=== PATIENT | male | born 1995 | race African-American/Black ===

== ENCOUNTER 2017-08-29 16:43 | Emergency (ER) | payer MEDICAID ==
[~2017-08-29] VITALS: Ht 180.3 cm; Wt 68.0 kg
[~2017-08-29 16:43] MED LIST: MARIJUANA INH
--- NOTE | 2017-08-29 16:53 | NUR ---
22 YO MALE BB RA FROM HOME. PATIENT IS ALERT AND ORIENTED X 3, STATES HE IS HEARING VOICES. DENIES SI/ HI AT THIS TIME, SKIN WARM AND DRY, RESP EVEN AND UNLABORED. AWAITING ORDERS FROM PROVIDER
--- NOTE | 2017-08-29 16:54 | NUR ---
MD RANDOLPHM AT BED SIDE FOR EVAL
[2017-08-29 17:01] LABS: BASOPHILS # (AUTO) 0.1 /CMM (0.0-0.2); BASOPHILS % (AUTO) 2.2 % (0.0-2.0); EOSINOPHILS # (AUTO) 0.2 /CMM (0.0-0.7); EOSINOPHILS % (AUTO) 4.8 % (0.0-6.0); HEMATOCRIT 47 % (39-51); HEMOGLOBIN 15.8 g/dL (13.5-17.5); LYMPHOCYTES # (AUTO) 2.1 /CMM (0.8-4.8); LYMPHOCYTES % (AUTO) 48.5 % (20.0-44.0); MEAN CORPUSCULAR HEMOGLOBIN 31 PG (26.0-33.0); MEAN CORPUSCULAR HGB CONC 34 g/dl (31.0-36.0); MEAN CORPUSCULAR VOLUME 91 fL (80-96); MONOCYTES # (AUTO) 0.5 /CMM (0.1-1.30); MONOCYTES % (AUTO) 10.3 % (2.0-12.0); NEUTROPHILS # (AUTO) 1.6 /CMM (1.8-8.9); NEUTROPHILS % (AUTO) 34.2 % (43.0-81.0); PLATELET COUNT (AUTO) 256 /CMM (150-450); RDW COEFFICIENT OF VARIATION 13.8 (11.5-15.0); RED BLOOD CELL COUNT(AUTO) 5.14 MIL/uL (4.5-6.0); WHITE BLOOD COUNT (AUTO) 4.5 K/uL (4.3-11.0)
[2017-08-29 17:17] LABS: ALANINE AMINOTRANSFERASE 27 U/L (12-78); ALBUMIN 4.1 g/dL (3.4-5.0); ALCOHOL, BLOOD < 3 mg/dL (0-0); ALKALINE PHOSPHATASE 44 U/L (46-116); ASPARTATE AMINOTRANSFERASE 32 U/L (15-37); BILIRUBIN,DIRECT 0.3 mg/dL (0.0-0.2); BILIRUBIN,TOTAL 1.1 mg/dL (0.2-1.0); CALCIUM, SERUM 9.6 mg/dL (8.5-10.1); CARBON DIOXIDE 29 mmol/L (21-32); CHLORIDE 101 mmol/L (98-107); CREATININE 1.1 mg/dL (0.6-1.3); GLUCOSE 103 mg/dL (74-106); POTASSIUM 3.9 mmol/L (3.5-5.1); SODIUM SERUM 139 mmol/L (136-145); TOTAL PROTEIN, SERUM 8.4 g/dL (6.4-8.2); UREA NITROGEN, BLOOD 20 mg/dL (7-18)
--- NOTE | 2017-08-29 17:21 | NUR ---
CALLED PINKY FOR PSYCH EVAL, ETA 1 HOUR
[2017-08-29 17:22] LABS: APPEARANCE,URINE CLEAR (CLEAR); BILIRUBIN,URINE NEGATIVE (NEGATIVE); BLOOD, URINE NEGATIVE Ery/uL (NEGATIVE); COLOR,URINE YELLOW (YELLOW); KETONES,URINE NEGATIVE (NEGATIVE); LEUKOCYTE ESTERASE ,URINE NEGATIVE (NEGATIVE); NITRITE, URINE NEGATIVE (NEGATIVE); PROTEIN,URINE 2+ mg/dl (NEGATIVE); UGLUCOSE NEGATIVE (NEGATIVE); UROBILINOGEN,URINE 0.2 EU/dL (0.2)
[2017-08-29 17:35] LABS: BACTERIA,URINE Few /HPF (None Seen); RBC,URINE 0-2 /HPF (0-2); WBC,URINE 0-2 /HPF (0-3)
[2017-08-29 17:36] LABS: SQUAMOUS EPITHELIAL CELL,UR Few /HPF (None Seen)
[2017-08-29 18:18] LABS: ACETAMINOPHEN 0 ug/ml (10-30)
--- NOTE | 2017-08-29 19:10 | NUR ---
Narayan tan in [facility] - 08/29/17 at 1916 by BRIAN RECEIVED REPORT FROM HAI GOODRICH FOR HOWIE.
--- NOTE | 2017-08-29 19:22 | NUR ---
RECEIVED REPORT FROM HAI WAGONER FOR HOWIE.
--- NOTE | 2017-08-29 19:56 | NUR ---
REQUESTED [facility] FOR TRANSPORT TO [facility], ETA 83 MIN.
--- NOTE | 2017-08-29 20:04 | NUR ---
Patient is resting comfortably in bed with eyes closed. Easily aroused. VSS
--- NOTE | 2017-08-29 20:52 | NUR ---
[facility] BEDSIDE FOR PT TRANSPORT TO [facility]
--- NOTE | 2017-08-29 20:52 | NUR ---
Patient Tranfers to outside Facility Physician: LALO. Location: [facility] PT TRANSFERRED WITH VSS AND NO S/S OF PT DISCOMFORT NOTED. PT [facility].
[2017-08-29 20:54] VITALS: BP 122/69
== END 2017-08-29 20:56 ==
LOC: ER 16:45
DX: R45.851 Suicidal ideations (principal); R79.89 Other specified abnormal findings of blood chemistry; F15.10 Other stimulant abuse, uncomplicated; F12.10 Cannabis abuse, uncomplicated; F19.10 Other psychoactive substance abuse, uncomplicated; F10.10 Alcohol abuse, uncomplicated; F17.200 Nicotine dependence, unspecified, uncomplicated; G89.29 Other chronic pain; F20.9 Schizophrenia, unspecified
CPT/HCPCS: 36415; 80048; 80076; 80305; 80329; 81001; 85025; 99285; A4606; G0480 ×2; Z7610; 81000-TC

== ENCOUNTER 2018-12-19 20:04 | Emergency (ER) | payer MEDICAID, OTHER ==
[~2018-12-19] VITALS: Ht 180.3 cm; Wt 70.3 kg
--- NOTE | 2018-12-19 20:26 | NUR ---
AISSATOU PUCKETT IS A THE BEDSIDE A SITTER.
--- NOTE | 2018-12-19 20:26 | NUR ---
PT PRESENTED TO THE ER WITH A C/O SI. PT STATED THAT HE DOES NOT HAVE A PLAN AT THIS TIME. PT AMBULATED TO ER 15 AFTER HE GAVE A URINE SAMPLE. URINE SAMPLE SENT TO THE LAB.
--- NOTE | 2018-12-19 20:27 | NUR ---
PT CHANGED INTO A GOWN. ALL PT'S BELONGINGS WERE PLACED INTO A BELONGING BAG AND PT'S STICKER WAS APPLIED TO THE BAG. BAG IS IN THE NURSE'S STATION UNDER THE SINK.
--- NOTE | 2018-12-19 20:27 | NUR ---
PT REC'D 2 WARM BLANKETS.
--- NOTE | 2018-12-19 20:29 | NUR ---
SECURITY IS AT THE BEDSIDE WANDING THE PT.
[2018-12-19 20:44] LABS: APPEARANCE,URINE Clear (CLEAR); BILIRUBIN,URINE Negative (NEGATIVE); BLOOD, URINE Negative Ery/uL (NEGATIVE); COLOR,URINE Yellow (YELLOW); KETONES,URINE Negative (NEGATIVE); LEUKOCYTE ESTERASE ,URINE Negative (NEGATIVE); NITRITE, URINE Negative (NEGATIVE); PROTEIN,URINE Negative (NEGATIVE); UGLUCOSE Negative (NEGATIVE); UROBILINOGEN,URINE 0.2 EU/dL (0.2)
[2018-12-19 20:45] LABS: BASOPHILS # (AUTO) 0.1 /CMM (0.0-0.2); BASOPHILS % (AUTO) 0.9 % (0.0-2.0); EOSINOPHILS % (AUTO) 3.3 % (0.0-6.0); HEMATOCRIT 42 % (39-51); HEMOGLOBIN 13.9 g/dL (13.5-17.5); LYMPHOCYTES # (AUTO) 2.3 /CMM (0.8-4.8); LYMPHOCYTES % (AUTO) 32.9 % (20.0-44.0); MEAN CORPUSCULAR HGB CONC 34 g/dl (31.0-36.0); MEAN CORPUSCULAR VOLUME 94 fL (80-96); MONOCYTES # (AUTO) 0.5 /CMM (0.1-1.30); MONOCYTES % (AUTO) 6.6 % (2.0-12.0); NEUTROPHILS # (AUTO) 3.9 /CMM (1.8-8.9); NEUTROPHILS % (AUTO) 56.3 % (43.0-81.0); PLATELET COUNT (AUTO) 230 /CMM (150-450); WHITE BLOOD COUNT (AUTO) 6.9 K/uL (4.3-11.0)
[2018-12-19 21:04] LABS: ALANINE AMINOTRANSFERASE 29 U/L (12-78); ALBUMIN 3.6 g/dL (3.4-5.0); ALCOHOL, BLOOD < 3 mg/dL (0-0); ALKALINE PHOSPHATASE 56 U/L (46-116); ASPARTATE AMINOTRANSFERASE 28 U/L (15-37); BILIRUBIN,TOTAL 0.2 mg/dL (0.2-1.0); CALCIUM, SERUM 8.8 mg/dL (8.5-10.1); CARBON DIOXIDE 29 mmol/L (21-32); CHLORIDE 104 mmol/L (98-107); CREATININE 1.1 mg/dL (0.6-1.3); GLUCOSE 97 mg/dL (74-106); POTASSIUM 3.6 mmol/L (3.5-5.1); SALICYLATE 3.5 mg/dL (2.8-20.0); SODIUM SERUM 139 mmol/L (136-145); TOTAL PROTEIN, SERUM 7.1 g/dL (6.4-8.2); UREA NITROGEN, BLOOD 12 mg/dL (7-18)
[2018-12-19 21:05] LABS: ACETAMINOPHEN < 2 ug/ml (10-30)
--- NOTE | 2018-12-19 22:00 | NUR ---
PT ATE A SANDWICH AND JUICE.
--- NOTE | 2018-12-19 22:24 | NUR ---
CALLED JEREMÍAS EASLEY FOR TRANSFER TO [facility]
--- NOTE | 2018-12-19 22:50 | NUR ---
CALL FROM [facility], REQUESTING CALL BACK AT [phone] AFTER CRISIS TEAM EVALUATION.
--- NOTE | 2018-12-19 23:05 | NUR ---
RISHI ETA 1 HR
--- NOTE | 2018-12-19 23:54 | NUR ---
YSABEL BLACKWELL, ARRIVED AND IS REVIEWING THE PT'S CHART.
--- NOTE | 2018-12-20 00:09 | NUR ---
PT IS SLEEPING SOUNDLY WITH NO S/S OF PAIN OR DISTRESS.
--- NOTE | 2018-12-20 00:10 | NUR ---
GAY, EMT IS AT THE BEDSIDE A SITTER.
--- NOTE | 2018-12-20 00:19 | NUR ---
PT WAS SEEN BY YSABEL BLACKWELL.
--- NOTE | 2018-12-20 00:40 | NUR ---
AISSATOU PUCKETT, IS AT THE BEDSIDE.
--- NOTE | 2018-12-20 00:50 | NUR ---
PER YSABEL BLACKWELL, PT IS ON A 5150 AND SHE SPOKE TO TL AT [facility] RE: PT'S EVALUATION.
--- NOTE | 2018-12-20 00:51 | NUR ---
YSABEL BLACKWELL, FAXED [facility] WITH THE PT'S CLINICALS AND HOLD.
--- NOTE | 2018-12-20 01:01 | NUR ---
PT REC'D WATER AND IS TOLERATING PO WELL.
--- NOTE | 2018-12-20 01:20 | NUR ---
YSABEL BLACKWELL, CALLED [facility]. [facility] REC'D THE FAX AND WILL CALL BACK WHEN THEY HAVE BED INFORMATION.
--- NOTE | 2018-12-20 01:30 | NUR ---
[facility] CALLED AND SPOKE TO HAI LEI. UPDATED VS GIVEN AND STATUS OF PT GIVEN.
--- NOTE | 2018-12-20 02:29 | NUR ---
PT ACCEPTED TO [facility] UNIT [address] DA SILVA. # FOR REPORT [phone]. ETA 60-90 MIN
--- NOTE | 2018-12-20 02:55 | NUR ---
REPORT GIVEN TO HAI CALLAHAN AT [facility].
[2018-12-20 02:57] VITALS: BP 114/72
--- NOTE | 2018-12-20 02:57 | NUR ---
PT TRANSFERED OUT VIA AMBULANCE. VSS.
== END 2018-12-20 02:59 ==
LOC: ER 20:04
DX: R45.851 Suicidal ideations (principal); R44.0 Auditory hallucinations; G89.29 Other chronic pain; F17.200 Nicotine dependence, unspecified, uncomplicated; Z59.0 Homelessness
CPT/HCPCS: 36415; 80048-TC; 80076-TC; 80305; 81000-TC; 85025-TC; G0480

== ENCOUNTER 2019-01-05 21:03 | Emergency (ER) | payer OTHER, MEDICAID ==
[~2019-01-05] VITALS: Ht 180.3 cm; Wt 70.3 kg
--- NOTE | 2019-01-05 21:20 | NUR ---
PT TO ER C/O AUDITORY HALLUCINATIONS TELLING HIM TO KILL HIMSELF. NO IMMEDIATE SIGNS OF DISTRESS NOTED. PT CALM AND COOPERATIVE. PT STATES HE HAS NOT BEEN TAKING HIS MEDS. PT TO ER BED, CHANGED INTO GOWN AND SI PRECUATIONS IMPLEMENTED. WILL CONT TO MONITOR PT.
[2019-01-05] MEDS ORDERED: OLANZAPINE 5 MG TABLET PO ONE (21:30)
[2019-01-05 21:40] LABS: BASOPHILS % (AUTO) 0.8 % (0.0-2.0); EOSINOPHILS % (AUTO) 2.7 % (0.0-6.0); HEMATOCRIT 40 % (39-51); HEMOGLOBIN 13.3 g/dL (13.5-17.5); LYMPHOCYTES # (AUTO) 2.5 /CMM (0.8-4.8); LYMPHOCYTES % (AUTO) 41.9 % (20.0-44.0); MEAN CORPUSCULAR HGB CONC 33 g/dl (31.0-36.0); MEAN CORPUSCULAR VOLUME 94 fL (80-96); MONOCYTES # (AUTO) 0.6 /CMM (0.1-1.30); MONOCYTES % (AUTO) 9.3 % (2.0-12.0); NEUTROPHILS # (AUTO) 2.7 /CMM (1.8-8.9); NEUTROPHILS % (AUTO) 45.3 % (43.0-81.0); PLATELET COUNT (AUTO) 235 /CMM (150-450); RED BLOOD CELL COUNT(AUTO) 4.32 MIL/uL (4.5-6.0)
[2019-01-05 21:44] LABS: APPEARANCE,URINE CLEAR (CLEAR); BILIRUBIN,URINE 1+ (NEGATIVE); BLOOD, URINE NEGATIVE Ery/uL (NEGATIVE); COLOR,URINE YELLOW (YELLOW); KETONES,URINE TRACE (NEGATIVE); LEUKOCYTE ESTERASE ,URINE NEGATIVE (NEGATIVE); NITRITE, URINE NEGATIVE (NEGATIVE); PROTEIN,URINE NEGATIVE (NEGATIVE); UGLUCOSE NEGATIVE (NEGATIVE)
[2019-01-05 21:50] LABS: RBC,URINE 0-2 /HPF (0-2); WBC,URINE 0-2 /HPF (0-3)
[2019-01-05 21:51] LABS: BACTERIA,URINE None seen /HPF (None Seen); SQUAMOUS EPITHELIAL CELL,UR 0-2 /HPF (None Seen)
[2019-01-05 22:02] LABS: ALANINE AMINOTRANSFERASE 35 U/L (12-78); ALBUMIN 3.8 g/dL (3.4-5.0); ALCOHOL, BLOOD < 3 mg/dL (0-0); ALKALINE PHOSPHATASE 66 U/L (46-116); ASPARTATE AMINOTRANSFERASE 31 U/L (15-37); BILIRUBIN,DIRECT 0.1 mg/dL (0.0-0.2); BILIRUBIN,TOTAL 0.2 mg/dL (0.2-1.0); CALCIUM, SERUM 9.1 mg/dL (8.5-10.1); CARBON DIOXIDE 26 mmol/L (21-32); CHLORIDE 105 mmol/L (98-107); CREATININE 1.1 mg/dL (0.6-1.3); GLUCOSE 92 mg/dL (74-106); POTASSIUM 3.9 mmol/L (3.5-5.1); SALICYLATE 3.8 mg/dL (2.8-20.0); SODIUM SERUM 141 mmol/L (136-145); TOTAL PROTEIN, SERUM 7.4 g/dL (6.4-8.2); UREA NITROGEN, BLOOD 12 mg/dL (7-18)
[2019-01-05 22:04] LABS: ACETAMINOPHEN < 2 ug/ml (10-30)
[2019-01-05] MEDS ORDERED: OLANZAPINE 5 MG TABLET ONE (22:04)
--- NOTE | 2019-01-05 23:14 | NUR ---
CALLED FAST FOOD TEAM MEMBER NATALIO BLACKWELL VOICEMAIL
--- NOTE | 2019-01-05 23:41 | NUR ---
CALLED JEREMÍAS EASLEY MD WILL CALL BACK FOR CRISIS EVAL PLAN
--- NOTE | 2019-01-06 00:19 | NUR ---
RISHI ETA 30 MINUTES
[2019-01-06 05:48] VITALS: BP 121/65
--- NOTE | 2019-01-06 05:53 | NUR ---
PT SLEEPING IN [place]. NO SIGNS OF DISTRESS NOTED. PT VITAL SIGNS STABLE. WILL CONT TO MONITOR PT.
--- NOTE | 2019-01-06 06:02 | NUR ---
CALL FROM [facility] [facility]. PT ACCEPTED TO LOCATED WITHIN [facility] BY DR PAIZ. JETHRO SANTO, [id number]. #FOR REPORT [phone].
--- NOTE | 2019-01-06 06:44 | NUR ---
REPORT GIVEN TO ABIGAIL VALLES FOR CONTINUATION OF CARE.
--- NOTE | 2019-01-06 07:05 | NUR ---
[facility]ANCE AT BEDSIDE FOR TRANSPORT TO [facility].
== END 2019-01-06 07:13 ==
LOC: ER 21:07
DX: R44.0 Auditory hallucinations (principal); F12.90 Cannabis use, unspecified, uncomplicated; G89.29 Other chronic pain; Z91.14 Patient's other noncompliance with medication regimen; Z59.0 Homelessness
CPT/HCPCS: 36415; 80048; 80305; 80076; 80307; 80329; 81001; 85025; 99285; G0480; 81000-TC

== ENCOUNTER 2019-02-17 13:36 | Emergency (ER) | payer OTHER, MEDICAID ==
[2019-02-17 14:25] LABS: BASOPHILS % (AUTO) 0.7 % (0.0-2.0); EOSINOPHILS % (AUTO) 4.6 % (0.0-6.0); HEMATOCRIT 44 % (39-51); HEMOGLOBIN 14.8 g/dL (13.5-17.5); LYMPHOCYTES # (AUTO) 1.7 /CMM (0.8-4.8); LYMPHOCYTES % (AUTO) 28.6 % (20.0-44.0); MEAN CORPUSCULAR HGB CONC 34 g/dl (31.0-36.0); MEAN CORPUSCULAR VOLUME 93 fL (80-96); MONOCYTES # (AUTO) 0.5 /CMM (0.1-1.30); MONOCYTES % (AUTO) 9.1 % (2.0-12.0); NEUTROPHILS # (AUTO) 3.4 /CMM (1.8-8.9); PLATELET COUNT (AUTO) 246 /CMM (150-450); RED BLOOD CELL COUNT(AUTO) 4.69 MIL/uL (4.5-6.0); WHITE BLOOD COUNT (AUTO) 5.9 K/uL (4.3-11.0)
[2019-02-17] MEDS ORDERED: OLANZAPINE 5 MG TABLET PO ONE (14:30)
[2019-02-17 14:47] LABS: APPEARANCE,URINE Clear (CLEAR); BILIRUBIN,URINE Negative (NEGATIVE); BLOOD, URINE Negative Ery/uL (NEGATIVE); COLOR,URINE Yellow (YELLOW); KETONES,URINE 15 (NEGATIVE); LEUKOCYTE ESTERASE ,URINE Negative (NEGATIVE); NITRITE, URINE Negative (NEGATIVE); PROTEIN,URINE Negative (NEGATIVE); UGLUCOSE Negative (NEGATIVE); UROBILINOGEN,URINE 0.2 EU/dL (0.2)
[2019-02-17] MEDS ORDERED: OLANZAPINE 5 MG TABLET ONE (14:47)
[2019-02-17 14:49] LABS: RBC,URINE 0-2 /HPF (0-2)
[2019-02-17 14:50] LABS: BACTERIA,URINE Few /HPF (None Seen); SQUAMOUS EPITHELIAL CELL,UR Few /HPF (None Seen); WBC,URINE 0-2 /HPF (0-3)
[2019-02-17 15:23] LABS: ALANINE AMINOTRANSFERASE 57 U/L (12-78); ALBUMIN 3.6 g/dL (3.4-5.0); ALCOHOL, BLOOD < 3 mg/dL (0-0); ALKALINE PHOSPHATASE 70 U/L (46-116); ASPARTATE AMINOTRANSFERASE 100 U/L (15-37); BILIRUBIN,DIRECT 0.1 mg/dL (0.0-0.2); BILIRUBIN,TOTAL 0.5 mg/dL (0.2-1.0); CARBON DIOXIDE 25 mmol/L (21-32); CHLORIDE 101 mmol/L (98-107); GLUCOSE 112 mg/dL (74-106); POTASSIUM 3.5 mmol/L (3.5-5.1); SODIUM SERUM 137 mmol/L (136-145); TOTAL PROTEIN, SERUM 7.7 g/dL (6.4-8.2); UREA NITROGEN, BLOOD 21 mg/dL (7-18)
[2019-02-17 15:25] LABS: ACETAMINOPHEN 0 ug/ml (10-30); SALICYLATE 2.4 mg/dL (2.8-20.0)
--- NOTE | 2019-02-17 15:47 | NUR ---
Social service consult requested by Edward Gibbs for suicidal ideations. Pt. is a 23 year old male with a history of schizophrenia presented to ED with auditory hallucinations. SW met with pt. bedside. Pt. is alert and oriented x 3. Pt. kept falling asleep midst of the assessment and had to be woken up a few times. When awake pt. was cooperative and able to provide meaningful information. Pt. states he is homeless and has been fort a year. Pt's emergency contact is his sister Morenita . Pt. is currently denying any suicidal and homicidal ideations and visual/auditory hallucinations at this time. Pt. stated he was having auditory hallucinations earlier in the day but not currently. Pt. admits to using methamphetamine 1 week ago. Pt. used cannabinoids earlier today. SW offered pt. homeless custodial placement, however pt. declined. Pt. is willing to accept homeless custodial and various other resources. Pt. was provided with the following resources: [facility] located at [address] [facility] ; [facility], [address] [place] [address] L[place] ; [facility] [place], [address] [facility], [facility] [place] ; [facility] Homeless Resource Directory which includes food stamps, transitional housing, showers and hot meals etc; Mental Health clinics such as [facility] ; [facility] ; Health clinics;[facility] and Alcohol treatment centers such as [facility], ; [facility] Substance Abuse Hotline and [facility] . Pt. will be provided with a TAP card upon discharge. Pt. to sign Homeless Patient Waiver Form upon discharge. Both Homeless waiver form and resources have been placed in the chart to give to pt. upon discharge. DIMA updated CANDACE Markham regarding pt's discharge plan.
--- NOTE | 2019-02-17 17:07 | NUR ---
Patient discharged to home in stable condition. Written and verbal after care instructions given. Patient verbalizes understanding of instruction.
[2019-02-17 17:08] VITALS: BP 116/80
--- NOTE | 2019-02-17 17:08 | NUR ---
RESOURCES AND TAP CARD WAS PROVIDED TO PATIENT
== END 2019-02-17 17:09 | disposition home or self-care (01) ==
LOC: ER 13:44
DX: R44.0 Auditory hallucinations (principal); G89.29 Other chronic pain; M54.9 Dorsalgia, unspecified; F10.10 Alcohol abuse, uncomplicated; F17.200 Nicotine dependence, unspecified, uncomplicated; F12.10 Cannabis abuse, uncomplicated; F15.90 Other stimulant use, unspecified, uncomplicated; Y90.0 Blood alcohol level of less than 20 mg/100 ml; Z59.0 Homelessness
CPT/HCPCS: 36415; 80048; 80076; 80305; 80307; 80329; 81001; 85025; 99284; G0480; 81000-TC

== ENCOUNTER 2019-02-27 16:44 | Emergency (ER) | payer OTHER, MEDICAID ==
[~2019-02-27] VITALS: Ht 177.8 cm; Wt 74.8 kg
--- NOTE | 2019-02-27 16:47 | NUR ---
PT BIB SELF C/O SI "I WANT TO JUMP OFF THE BUILDING" +AUDITORY HALLUCINATION. PT IS AAOX3, NOT IN RESPIRATORY DISTRESS, HOOKED TO MONITOR, KEPT RESTED AND COMFORTABLE, WILL CONTINUE TO MONITOR.
--- NOTE | 2019-02-27 17:00 | NUR ---
URINE SPECIMEN COLLECTED AND SENT TO LAB.
--- NOTE | 2019-02-27 17:07 | NUR ---
SEEN AND EXAMINED BY
[2019-02-27 17:22] LABS: APPEARANCE,URINE Clear (CLEAR); BILIRUBIN,URINE Negative (NEGATIVE); BLOOD, URINE Negative Ery/uL (NEGATIVE); COLOR,URINE Yellow (YELLOW); KETONES,URINE Negative (NEGATIVE); LEUKOCYTE ESTERASE ,URINE Negative (NEGATIVE); NITRITE, URINE Negative (NEGATIVE); PROTEIN,URINE Negative (NEGATIVE); UGLUCOSE Negative (NEGATIVE); UROBILINOGEN,URINE 0.2 EU/dL (0.2)
[2019-02-27 17:25] LABS: BASOPHILS # (AUTO) 0.1 /CMM (0.0-0.2); EOSINOPHILS % (AUTO) 3.3 % (0.0-6.0); HEMATOCRIT 40 % (39-51); HEMOGLOBIN 13.5 g/dL (13.5-17.5); LYMPHOCYTES # (AUTO) 2.1 /CMM (0.8-4.8); LYMPHOCYTES % (AUTO) 36.1 % (20.0-44.0); MEAN CORPUSCULAR HGB CONC 34 g/dl (31.0-36.0); MEAN CORPUSCULAR VOLUME 94 fL (80-96); MONOCYTES # (AUTO) 0.6 /CMM (0.1-1.30); MONOCYTES % (AUTO) 10.1 % (2.0-12.0); NEUTROPHILS # (AUTO) 2.9 /CMM (1.8-8.9); NEUTROPHILS % (AUTO) 49.5 % (43.0-81.0); PLATELET COUNT (AUTO) 264 /CMM (150-450); RED BLOOD CELL COUNT(AUTO) 4.29 MIL/uL (4.5-6.0); WHITE BLOOD COUNT (AUTO) 5.9 K/uL (4.3-11.0)
--- NOTE | 2019-02-27 17:33 | NUR ---
SI PROTOCOL INITIATED.
--- NOTE | 2019-02-27 17:33 | NUR ---
FOOD TRAY PROVIDED.
[2019-02-27 17:55] LABS: CALCIUM, SERUM 9.2 mg/dL (8.5-10.1); POTASSIUM 3.6 mmol/L (3.5-5.1)
[2019-02-27 18:01] LABS: ALBUMIN 3.8 g/dL (3.4-5.0); BILIRUBIN,DIRECT 0.1 mg/dL (0.0-0.2); BILIRUBIN,TOTAL 0.4 mg/dL (0.2-1.0); TOTAL PROTEIN, SERUM 7.6 g/dL (6.4-8.2)
--- NOTE | 2019-02-27 18:24 | NUR ---
CALLED [facility], SPOKE TO FABIANA. FACESHEET AND CLINICALS FAXED.
[2019-02-27 18:52] VITALS: BP 104/66
--- NOTE | 2019-02-27 20:53 | NUR ---
CALLED [facility] AND PRESENTED CASE. INFORMED JEREMÍAS THAT DOCTOR BORREGO IS READY TO PRESENT.
--- NOTE | 2019-02-27 21:18 | NUR ---
GIANFRANCO RN MANAGER USER INTERFACE AT BEDSIDE FOR EVAL.
--- NOTE | 2019-02-28 00:29 | NUR ---
CALL FROM [facility]. PT ACCEPTED TO [facility] BY DR JACKSON. UNIT 3. # FOR REPORT [phone]. ETA 60 MIN
--- NOTE | 2019-02-28 01:04 | NUR ---
REPORT GIVEN TO CUCA VALLES FOR CONTINUATION OF CARE.
--- NOTE | 2019-02-28 01:25 | NUR ---
[facility] AT BEDSIDE FOR TRANSPORT TO [facility].
== END 2019-02-28 01:27 ==
LOC: ER 16:46
DX: F29 Unspecified psychosis not due to a substance or known physiological condition (principal); G89.29 Other chronic pain; M54.9 Dorsalgia, unspecified; F20.9 Schizophrenia, unspecified; F10.10 Alcohol abuse, uncomplicated; F17.200 Nicotine dependence, unspecified, uncomplicated; F32.9 Major depressive disorder, single episode, unspecified; F12.10 Cannabis abuse, uncomplicated; Y90.1 Blood alcohol level of 20-39 mg/100 ml; Z59.0 Homelessness
CPT/HCPCS: 80048; 36415; 80076; 80305; 80307; 80329; 81001; 85025; 99285; G0480; 81000-TC

== ENCOUNTER 2019-04-08 09:51 | Emergency (ER) | payer OTHER, MEDICAID ==
[~2019-04-08] VITALS: Ht 177.8 cm; Wt 72.6 kg
--- NOTE | 2019-04-08 10:00 | NUR ---
patient came in to the er c/o hearing voices telling him to kill himself. wants to be admitted voluntary to a psych facility. on room air, breathing evenly and unlabored. Ambulatory with steady gait. Connected to the monitor and pulse ox. sitter at bedside for constant monitoring. Belonings taken and put in the locker. Will continue to monitor accordingly.
--- NOTE | 2019-04-08 10:06 | NUR ---
SECURITY AT BEDSIDE FOR WANDING. BELONGINGS COLLECTED PLACED IN A LOCKER. 1:1 SITTER AT BEDSIDE.
--- NOTE | 2019-04-08 10:11 | NUR ---
urine collected and sent to lab
[2019-04-08 10:24] LABS: BASOPHILS # (AUTO) 0.1 /CMM (0.0-0.2); BASOPHILS % (AUTO) 0.9 % (0.0-2.0); EOSINOPHILS % (AUTO) 2.1 % (0.0-6.0); HEMATOCRIT 44 % (39-51); HEMOGLOBIN 14.7 g/dL (13.5-17.5); LYMPHOCYTES # (AUTO) 1.8 /CMM (0.8-4.8); LYMPHOCYTES % (AUTO) 30.4 % (20.0-44.0); MEAN CORPUSCULAR HGB CONC 34 g/dl (31.0-36.0); MEAN CORPUSCULAR VOLUME 93 fL (80-96); MONOCYTES # (AUTO) 0.8 /CMM (0.1-1.30); MONOCYTES % (AUTO) 13.6 % (2.0-12.0); NEUTROPHILS # (AUTO) 3.2 /CMM (1.8-8.9); PLATELET COUNT (AUTO) 253 /CMM (150-450)
[2019-04-08 10:30] LABS: APPEARANCE,URINE Clear (CLEAR); BILIRUBIN,URINE SMALL (NEGATIVE); BLOOD, URINE Negative Ery/uL (NEGATIVE); KETONES,URINE Negative (NEGATIVE); LEUKOCYTE ESTERASE ,URINE Negative (NEGATIVE); NITRITE, URINE Negative (NEGATIVE); PROTEIN,URINE Negative (NEGATIVE); UGLUCOSE Negative (NEGATIVE)
[2019-04-08 10:36] LABS: COLOR,URINE YELLOW (YELLOW)
[2019-04-08 10:41] LABS: CALCIUM, SERUM 9.1 mg/dL (8.5-10.1); CARBON DIOXIDE 28 mmol/L (21-32); CHLORIDE 104 mmol/L (98-107); GLUCOSE 109 mg/dL (74-106); POTASSIUM 3.6 mmol/L (3.5-5.1); SODIUM SERUM 138 mmol/L (136-145); UREA NITROGEN, BLOOD 20 mg/dL (7-18)
[2019-04-08 10:49] LABS: ALANINE AMINOTRANSFERASE 38 U/L (12-78); ALCOHOL, BLOOD < 3 mg/dL (0-0); ALKALINE PHOSPHATASE 70 U/L (46-116); ASPARTATE AMINOTRANSFERASE 41 U/L (15-37); BILIRUBIN,DIRECT 0.1 mg/dL (0.0-0.2); BILIRUBIN,TOTAL 0.5 mg/dL (0.2-1.0); SALICYLATE 3.7 mg/dL (2.8-20.0); TOTAL PROTEIN, SERUM 8.2 g/dL (6.4-8.2)
[2019-04-08 10:50] LABS: BACTERIA,URINE None seen /HPF (None Seen); RBC,URINE 0-2 /HPF (0-2); SQUAMOUS EPITHELIAL CELL,UR Rare /HPF (None Seen)
[2019-04-08 10:58] LABS: ACETAMINOPHEN 0 ug/ml (10-30)
--- NOTE | 2019-04-08 11:32 | NUR ---
CALLED [facility]. SHADY SPRING DOCTOR WILL CALL BACK.
--- NOTE | 2019-04-08 11:50 | NUR ---
Received a call from [facility] Lui (CERTIFIED ALCOHOL COUNSELOR)
--- NOTE | 2019-04-08 13:28 | NUR ---
ACCEPTED AT [facility] UNIT [address]IAN [address] MOREAU. NUMBER FOR REPORT . IF ANY ISSUES [facility] DAVID CAN BE REACHED AT . PER DAVID, SHE WILL ARRANGED AMBULANCE TRANSPORT ETA WITHIN THE HOUR.
--- NOTE | 2019-04-08 13:57 | NUR ---
Report given to Cnonie for ciaran.
[2019-04-08 14:37] VITALS: BP 122/81
--- NOTE | 2019-04-08 14:37 | NUR ---
Patient left in stable condition, denies any pain at this time, EMT picked up the patient going to [facility]. All belongings given to patient.
== END 2019-04-08 14:37 ==
LOC: ER 09:57
DX: R45.851 Suicidal ideations (principal); R44.0 Auditory hallucinations; G89.29 Other chronic pain; F17.200 Nicotine dependence, unspecified, uncomplicated; Z59.0 Homelessness
CPT/HCPCS: 36415; 80048; 80076; 80305; 80307; 80329; 81001; 85025; 99285; G0480; 81000-TC

== ENCOUNTER 2019-07-18 11:23 | Emergency (ER) | payer MEDICAID, OTHER ==
[~2019-07-18] VITALS: Ht 180.3 cm; Wt 82.1 kg
--- NOTE | 2019-07-18 11:55 | NUR ---
BIB SELF C/O DIZZINESS AND BILATERAL LEG NUMBNESS FOR 2 DAYS. ALERT AND ORIENTED X3, BREATHING EVEN AND UNLABORED WITH NO DISTRESS NOTED. SKIN INTACT. WAITING TO BE SEEN BY
--- NOTE | 2019-07-18 12:37 | NUR ---
U/S TECH AT BEDSIDE
[2019-07-18 12:50] LABS: BASOPHILS # (AUTO) 0.1 /CMM (0.0-0.2); EOSINOPHILS % (AUTO) 2.7 % (0.0-6.0); HEMATOCRIT 42 % (39-51); HEMOGLOBIN 13.7 g/dL (13.5-17.5); LYMPHOCYTES # (AUTO) 1.8 /CMM (0.8-4.8); LYMPHOCYTES % (AUTO) 29.5 % (20.0-44.0); MEAN CORPUSCULAR HGB CONC 33 g/dl (31.0-36.0); MEAN CORPUSCULAR VOLUME 93 fL (80-96); MONOCYTES # (AUTO) 0.7 /CMM (0.1-1.30); MONOCYTES % (AUTO) 11.9 % (2.0-12.0); NEUTROPHILS # (AUTO) 3.4 /CMM (1.8-8.9); NEUTROPHILS % (AUTO) 54.9 % (43.0-81.0); PLATELET COUNT (AUTO) 239 /CMM (150-450); RED BLOOD CELL COUNT(AUTO) 4.47 MIL/uL (4.5-6.0); WHITE BLOOD COUNT (AUTO) 6.2 K/uL (4.3-11.0)
[2019-07-18 13:00] LABS: CALCIUM, SERUM 8.7 mg/dL (8.5-10.1); POTASSIUM 4.2 mmol/L (3.5-5.1)
[2019-07-18 13:05] LABS: ALBUMIN 3.6 g/dL (3.4-5.0); BILIRUBIN,DIRECT 0.1 mg/dL (0.0-0.2); BILIRUBIN,TOTAL 0.4 mg/dL (0.2-1.0); TOTAL PROTEIN, SERUM 7.5 g/dL (6.4-8.2)
[2019-07-18 13:58] VITALS: BP 130/66
--- NOTE | 2019-07-18 13:58 | NUR ---
Patient discharged to home in stable condition. Written and verbal after care instructions given. Patient verbalizes understanding of instruction.
== END 2019-07-18 13:59 | disposition home or self-care (01) ==
LOC: ER 11:28
DX: N45.1 Epididymitis (principal); G89.29 Other chronic pain; M54.9 Dorsalgia, unspecified; F10.10 Alcohol abuse, uncomplicated; F17.200 Nicotine dependence, unspecified, uncomplicated; Y90.9 Presence of alcohol in blood, level not specified; Z59.0 Homelessness
CPT/HCPCS: 36415; 76870-TC; 80048-TC; 80076-TC; 83690-TC; 85025-TC

== ENCOUNTER 2019-07-19 22:10 | Emergency (ER) | payer OTHER ==
[~2019-07-19] VITALS: Ht 180.3 cm; Wt 74.8 kg
--- NOTE | 2019-07-19 23:54 | NUR ---
PT BIBSELF C/O AUDITORY HALLUCINATIONS. PT STATES "THE VOICES ARE YELLING MY NAME AND IT KEEPS GETTING LOUDER AND LOUDER". ALSO C/O OCCASIONAL NONSPECIFIC SUICIDAL THOUGHTS. PT HAS BEEN NONCOMPLIANT WITH ZYPREXA AND LEXAPRO X1 WEEK. PT AAOX4. CALM AND COOPERATIVE. VITAL SIGNS STABLE. NO ACUTE DISTRESS NOTED AT THIS TIME. PT PLACED IN GOWN, BELONGINGS COLLECTED AND PLACED IN PATIENT LOCKER. SITTER AT BEDSIDE.
--- NOTE | 2019-07-19 23:59 | NUR ---
PLACED PT IN GOWN, TOOK ALL BELONGINGS AND PLACED IN LOCKER.
--- NOTE | 2019-07-20 | NUR ---
COLLECTED URINE SAMPLE AND TURNED INTO LAB
[2019-07-20 00:25] LABS: APPEARANCE,URINE Clear (CLEAR); BILIRUBIN,URINE Negative (NEGATIVE); BLOOD, URINE Trace-intact Ery/uL (NEGATIVE); COLOR,URINE Yellow (YELLOW); KETONES,URINE Negative (NEGATIVE); LEUKOCYTE ESTERASE ,URINE Negative (NEGATIVE); NITRITE, URINE Negative (NEGATIVE); PROTEIN,URINE Negative (NEGATIVE); UGLUCOSE Negative (NEGATIVE)
[2019-07-20 00:37] LABS: BASOPHILS # (AUTO) 0.1 /CMM (0.0-0.2); BASOPHILS % (AUTO) 0.6 % (0.0-2.0); EOSINOPHILS % (AUTO) 2.1 % (0.0-6.0); HEMATOCRIT 43 % (39-51); HEMOGLOBIN 14.1 g/dL (13.5-17.5); LYMPHOCYTES # (AUTO) 2.5 /CMM (0.8-4.8); LYMPHOCYTES % (AUTO) 27.9 % (20.0-44.0); MEAN CORPUSCULAR HGB CONC 33 g/dl (31.0-36.0); MEAN CORPUSCULAR VOLUME 93 fL (80-96); MONOCYTES % (AUTO) 10.9 % (2.0-12.0); NEUTROPHILS # (AUTO) 5.2 /CMM (1.8-8.9); NEUTROPHILS % (AUTO) 58.5 % (43.0-81.0); PLATELET COUNT (AUTO) 259 /CMM (150-450); RED BLOOD CELL COUNT(AUTO) 4.59 MIL/uL (4.5-6.0); WHITE BLOOD COUNT (AUTO) 8.9 K/uL (4.3-11.0)
[2019-07-20 00:39] LABS: BACTERIA,URINE None seen /HPF (None Seen); RBC,URINE 0-2 /HPF (0-2); SQUAMOUS EPITHELIAL CELL,UR Few /HPF (None Seen); WBC,URINE 0-2 /HPF (0-3)
[2019-07-20 00:52] LABS: CALCIUM, SERUM 9.3 mg/dL (8.5-10.1); CARBON DIOXIDE 28 mmol/L (21-32); CHLORIDE 104 mmol/L (98-107); GLUCOSE 88 mg/dL (74-106); POTASSIUM 3.8 mmol/L (3.5-5.1); SODIUM SERUM 140 mmol/L (136-145); UREA NITROGEN, BLOOD 18 mg/dL (7-18)
[2019-07-20 00:57] LABS: ALANINE AMINOTRANSFERASE 26 U/L (12-78); ALBUMIN 3.8 g/dL (3.4-5.0); ALCOHOL, BLOOD < 3 mg/dL (0-0); ALKALINE PHOSPHATASE 83 U/L (46-116); ASPARTATE AMINOTRANSFERASE 33 U/L (15-37); BILIRUBIN,DIRECT 0.1 mg/dL (0.0-0.2); BILIRUBIN,TOTAL 0.5 mg/dL (0.2-1.0); SALICYLATE 2.9 mg/dL (2.8-20.0); TOTAL PROTEIN, SERUM 7.9 g/dL (6.4-8.2)
[2019-07-20 00:58] LABS: ACETAMINOPHEN 0 ug/ml (10-30)
--- NOTE | 2019-07-20 06:50 | NUR ---
LAUREN CRISIS TEAM AT BEDSIDE FOR EVAL.
--- NOTE | 2019-07-20 07:00 | NUR ---
FACESHEET, 0792, CLINICALS FAXED TO [facility]
--- NOTE | 2019-07-20 07:53 | NUR ---
[facility] spoke to ewelina; pt is accepted, chris will call back for more info
--- NOTE | 2019-07-20 08:36 | NUR ---
Patient Tranfers to outside Facility Physician:Dr. Green Location: [facility] unit 3 # for report [phone]
--- NOTE | 2019-07-20 08:41 | NUR ---
BREAKFAST TRAY PROVIDED TO PATIENT. PLACED FOOD TRAY AT BEDSIDE
--- NOTE | 2019-07-20 08:58 | NUR ---
called [facility] and spoke to Carlos Manuel VALLES and report given for ciaran.
[2019-07-20 09:29] VITALS: BP 131/66
--- NOTE | 2019-07-20 09:30 | NUR ---
patient picked up by private ambulance in no distress, calm, denies pain or discomfort, nor chest pain.
== END 2019-07-20 09:30 ==
LOC: ER 22:15
DX: R45.851 Suicidal ideations (principal); R44.0 Auditory hallucinations; F32.9 Major depressive disorder, single episode, unspecified; F17.210 Nicotine dependence, cigarettes, uncomplicated; G89.29 Other chronic pain; M54.9 Dorsalgia, unspecified; F10.10 Alcohol abuse, uncomplicated; Y90.0 Blood alcohol level of less than 20 mg/100 ml; Z59.0 Homelessness
CPT/HCPCS: 36415; 80048; 80076; 80305; 80307; 80329; 81001; 85025; 99285; 99406; G0480; 81000-TC

== ENCOUNTER 2019-08-03 02:05 | Emergency (ER) | payer OTHER ==
[~2019-08-03] VITALS: Ht 180.3 cm; Wt 72.6 kg
--- NOTE | 2019-08-03 02:15 | NUR ---
PT TO ER C/O SUICIDAL IDEATION WITH PLAN TO OD ON MEDS. PT STATES AUDITORY HALLUCINATIONS TELLING HIM TO KILL HIMSELF. SI PRECAUTIONS IMPLEMENTED. PT TO ER BED, CHANGED INTO GOWN. WILL CONT TO MONITOR PT.
[2019-08-03 02:36] LABS: APPEARANCE,URINE Clear (CLEAR); BILIRUBIN,URINE Negative (NEGATIVE); BLOOD, URINE Negative Ery/uL (NEGATIVE); COLOR,URINE Light yellow (YELLOW); KETONES,URINE Negative (NEGATIVE); LEUKOCYTE ESTERASE ,URINE Negative (NEGATIVE); NITRITE, URINE Negative (NEGATIVE); PROTEIN,URINE Negative (NEGATIVE); UGLUCOSE Negative (NEGATIVE); UROBILINOGEN,URINE 0.2 EU/dL (0.2)
[2019-08-03 02:40] LABS: BASOPHILS # (AUTO) 0.1 /CMM (0.0-0.2); BASOPHILS % (AUTO) 0.9 % (0.0-2.0); EOSINOPHILS % (AUTO) 4.7 % (0.0-6.0); HEMATOCRIT 42 % (39-51); HEMOGLOBIN 13.9 g/dL (13.5-17.5); LYMPHOCYTES # (AUTO) 2.7 /CMM (0.8-4.8); LYMPHOCYTES % (AUTO) 41.2 % (20.0-44.0); MEAN CORPUSCULAR HGB CONC 33 g/dl (31.0-36.0); MEAN CORPUSCULAR VOLUME 91 fL (80-96); MONOCYTES # (AUTO) 0.7 /CMM (0.1-1.30); MONOCYTES % (AUTO) 10.6 % (2.0-12.0); NEUTROPHILS # (AUTO) 2.8 /CMM (1.8-8.9); NEUTROPHILS % (AUTO) 42.6 % (43.0-81.0); PLATELET COUNT (AUTO) 246 /CMM (150-450); RED BLOOD CELL COUNT(AUTO) 4.58 MIL/uL (4.5-6.0); WHITE BLOOD COUNT (AUTO) 6.7 K/uL (4.3-11.0)
[2019-08-03 02:41] LABS: CALCIUM, SERUM 8.9 mg/dL (8.5-10.1); CARBON DIOXIDE 28 mmol/L (21-32); CHLORIDE 104 mmol/L (98-107); CREATININE 1.1 mg/dL (0.6-1.3); GLUCOSE 88 mg/dL (74-106); POTASSIUM 3.9 mmol/L (3.5-5.1); SODIUM SERUM 138 mmol/L (136-145); UREA NITROGEN, BLOOD 21 mg/dL (7-18)
[2019-08-03 02:47] LABS: ALANINE AMINOTRANSFERASE 26 U/L (12-78); ALBUMIN 3.8 g/dL (3.4-5.0); ALCOHOL, BLOOD < 3 mg/dL (0-0); ALKALINE PHOSPHATASE 72 U/L (46-116); ASPARTATE AMINOTRANSFERASE 35 U/L (15-37); BILIRUBIN,DIRECT 0.1 mg/dL (0.0-0.2); BILIRUBIN,TOTAL 0.3 mg/dL (0.2-1.0); SALICYLATE 3.3 mg/dL (2.8-20.0); TOTAL PROTEIN, SERUM 7.8 g/dL (6.4-8.2)
[2019-08-03 02:48] LABS: ACETAMINOPHEN 0 ug/ml (10-30)
--- NOTE | 2019-08-03 02:54 | NUR ---
[facility] called
--- NOTE | 2019-08-03 03:34 | NUR ---
[facility]
--- NOTE | 2019-08-03 05:24 | NUR ---
LAUREN CRISIS EDUCATIONAL ADVISER AT BEDSIDE FOR EVAL. PT PLACED ON 5150 DTS.
--- NOTE | 2019-08-03 06:39 | NUR ---
CALL FROM [facility]. PT ACCEPTED TO [facility], UNIT [address] DAMIAN. # FOR REPORT [phone]. ETA 60-99
--- NOTE | 2019-08-03 07:11 | NUR ---
REPORT GIVEN TO MICHAEL VALLES FOR CONTINUATION OF CARE.
[2019-08-03 07:30] VITALS: BP 132/80
--- NOTE | 2019-08-03 07:38 | NUR ---
Patient picked up by [facility] unit 115 in stable condition. Clinicals given to EMT. All belongings given to patient. Original hold w EMT. Patient will be transferred to [facility].
--- NOTE | 2019-08-03 11:05 | NUR ---
ewelina for [facility], f/u patients whereabouts, pt left at 7:38am from [place]. given prn ambulance unit #.
== END 2019-08-03 07:42 ==
LOC: ER 02:07
DX: R44.0 Auditory hallucinations (principal); R45.851 Suicidal ideations; R51 Headache; G89.29 Other chronic pain; M54.9 Dorsalgia, unspecified; F17.200 Nicotine dependence, unspecified, uncomplicated; F10.10 Alcohol abuse, uncomplicated; F12.10 Cannabis abuse, uncomplicated; Y90.0 Blood alcohol level of less than 20 mg/100 ml; Z59.0 Homelessness
CPT/HCPCS: 36415; 80048; 80076; 80305; 80307; 80329; 81001; 85025; 99285; G0480; 81000-TC

== ENCOUNTER 2019-08-30 21:11 | Emergency (ER) | payer OTHER ==
[~2019-08-30] VITALS: Ht 180.3 cm; Wt 79.4 kg
--- NOTE | 2019-08-30 22:13 | NUR ---
CALLED TO BE TRIAGED NO ANSWER
--- NOTE | 2019-08-30 22:20 | NUR ---
PT AAOX4. AMBULATORY WITH STEADY GAIT. BIBSELF C/O AUDITORY HALLUCINATIONS. PT STATES "THEY KEEP TELLING ME 'NO' AND TO KILL MYSELF." PT PLACED IN GOWN, ON MONITIOR AND PULSE OX. VSS. NO ACUTE DISTRESS NOTED. BELONINGS PLACED IN LOCKER. AWAITING MD FOR EVAL.
--- NOTE | 2019-08-30 22:25 | NUR ---
SECURITY CALLED FOR WANDING.
--- NOTE | 2019-08-30 22:28 | NUR ---
URINE SENT TO LAB.
--- NOTE | 2019-08-30 22:34 | NUR ---
LABS COLLECTED BY BARREL BRIDGE ASSEMBLER.
[2019-08-30 22:35] LABS: APPEARANCE,URINE Clear (CLEAR); BILIRUBIN,URINE Negative (NEGATIVE); BLOOD, URINE Negative Ery/uL (NEGATIVE); COLOR,URINE Yellow (YELLOW); KETONES,URINE Negative (NEGATIVE); LEUKOCYTE ESTERASE ,URINE Negative (NEGATIVE); NITRITE, URINE Negative (NEGATIVE); PROTEIN,URINE Negative (NEGATIVE); UGLUCOSE Negative (NEGATIVE); UROBILINOGEN,URINE 0.2 EU/dL (0.2)
[2019-08-30 22:44] LABS: BASOPHILS # (AUTO) 0.1 /CMM (0.0-0.2); EOSINOPHILS % (AUTO) 3.4 % (0.0-6.0); HEMATOCRIT 42 % (39-51); HEMOGLOBIN 13.6 g/dL (13.5-17.5); LYMPHOCYTES # (AUTO) 2.7 /CMM (0.8-4.8); MEAN CORPUSCULAR HGB CONC 32 g/dl (31.0-36.0); MEAN CORPUSCULAR VOLUME 94 fL (80-96); MONOCYTES # (AUTO) 0.8 /CMM (0.1-1.30); MONOCYTES % (AUTO) 11.5 % (2.0-12.0); NEUTROPHILS # (AUTO) 3.2 /CMM (1.8-8.9); NEUTROPHILS % (AUTO) 45.1 % (43.0-81.0); PLATELET COUNT (AUTO) 227 /CMM (150-450); RED BLOOD CELL COUNT(AUTO) 4.47 MIL/uL (4.5-6.0)
[2019-08-30 22:49] LABS: CALCIUM, SERUM 9.1 mg/dL (8.5-10.1); CARBON DIOXIDE 26 mmol/L (21-32); CHLORIDE 102 mmol/L (98-107); CREATININE 1.1 mg/dL (0.6-1.3); GLUCOSE 85 mg/dL (74-106); POTASSIUM 3.8 mmol/L (3.5-5.1); SODIUM SERUM 138 mmol/L (136-145); UREA NITROGEN, BLOOD 21 mg/dL (7-18)
[2019-08-30 22:55] LABS: ALANINE AMINOTRANSFERASE 29 U/L (12-78); ALBUMIN 3.7 g/dL (3.4-5.0); ALCOHOL, BLOOD < 3 mg/dL (0-0); ALKALINE PHOSPHATASE 72 U/L (46-116); ASPARTATE AMINOTRANSFERASE 29 U/L (15-37); BILIRUBIN,DIRECT 0.1 mg/dL (0.0-0.2); BILIRUBIN,TOTAL 0.4 mg/dL (0.2-1.0); TOTAL PROTEIN, SERUM 7.4 g/dL (6.4-8.2)
[2019-08-30 22:56] LABS: ACETAMINOPHEN 0 ug/ml (10-30); SALICYLATE 2.6 mg/dL (2.8-20.0)
--- NOTE | 2019-08-30 22:56 | NUR ---
Patient is resting comfortably in bed with eyes closed. Easily aroused. VSS
--- NOTE | 2019-08-30 23:37 | NUR ---
[facility] called
--- NOTE | 2019-08-31 00:34 | NUR ---
PER MONICA FROM [employer], [facility] PLATE SETTER CAN EVALUATE PATIENT. CALL BACK AFTER EVALUATION FOR PLACEMENT
--- NOTE | 2019-08-31 03:35 | NUR ---
SPOKE TO [facility] FOR UPDATES ON PT VITALS AND STATUS.
[2019-08-31 04:15] VITALS: BP 124/75
--- NOTE | 2019-08-31 04:26 | NUR ---
[facility] 2 NUMBER PETR STORM. ETA 1HR.
--- NOTE | 2019-08-31 04:33 | NUR ---
CALLED TWICE FOR REPORT, NO ANSWER. WILL CALL BACK.
--- NOTE | 2019-08-31 05:12 | NUR ---
REPORT GIVEN TO CELESTE RN FOR HOWIE
--- NOTE | 2019-08-31 05:32 | NUR ---
REPORT GIVEN TO TRANSPORT.
== END 2019-08-31 06:09 ==
LOC: ER 21:16
DX: R44.0 Auditory hallucinations (principal); R45.851 Suicidal ideations; Z59.0 Homelessness; F17.200 Nicotine dependence, unspecified, uncomplicated
CPT/HCPCS: 36415; 80048; 80076; 80305; 80307; 80329; 81001; 85025; 99285; G0480; 81000-TC

== ENCOUNTER 2019-09-21 14:10 | Emergency (ER) | payer OTHER ==
[~2019-09-21] VITALS: Ht 167.6 cm; Wt 81.6 kg
--- NOTE | 2019-09-21 14:21 | NUR ---
"Been hearing voices for a long time last week worse feeling suicidal NO plans", pt to bed 12, -sob, nad noted, called security for wanding, all belogings in locker for safety. vss, pending md grant
[2019-09-21 14:48] LABS: BASOPHILS % (AUTO) 0.7 % (0.0-2.0); EOSINOPHILS % (AUTO) 2.5 % (0.0-6.0); HEMATOCRIT 44 % (39-51); HEMOGLOBIN 14.9 g/dL (13.5-17.5); LYMPHOCYTES # (AUTO) 1.9 /CMM (0.8-4.8); LYMPHOCYTES % (AUTO) 32.3 % (20.0-44.0); MEAN CORPUSCULAR HGB CONC 34 g/dl (31.0-36.0); MEAN CORPUSCULAR VOLUME 94 fL (80-96); MONOCYTES # (AUTO) 0.5 /CMM (0.1-1.30); MONOCYTES % (AUTO) 9.1 % (2.0-12.0); NEUTROPHILS # (AUTO) 3.3 /CMM (1.8-8.9); NEUTROPHILS % (AUTO) 55.4 % (43.0-81.0); PLATELET COUNT (AUTO) 251 /CMM (150-450); WHITE BLOOD COUNT (AUTO) 5.9 K/uL (4.3-11.0)
[2019-09-21 14:50] LABS: CALCIUM, SERUM 9.1 mg/dL (8.5-10.1); CARBON DIOXIDE 31 mmol/L (21-32); CHLORIDE 101 mmol/L (98-107); CREATININE 1.3 mg/dL (0.6-1.3); GLUCOSE 83 mg/dL (74-106); POTASSIUM 3.8 mmol/L (3.5-5.1); SODIUM SERUM 138 mmol/L (136-145); UREA NITROGEN, BLOOD 15 mg/dL (7-18)
[2019-09-21 15:03] LABS: ALANINE AMINOTRANSFERASE 25 U/L (12-78); ALCOHOL, BLOOD < 3 mg/dL (0-0); ALKALINE PHOSPHATASE 69 U/L (46-116); ASPARTATE AMINOTRANSFERASE 27 U/L (15-37); BILIRUBIN,DIRECT 0.1 mg/dL (0.0-0.2); BILIRUBIN,TOTAL 0.5 mg/dL (0.2-1.0); TOTAL PROTEIN, SERUM 8.1 g/dL (6.4-8.2)
[2019-09-21 15:04] LABS: ACETAMINOPHEN < 2 ug/ml (10-30); SALICYLATE 1.9 mg/dL (2.8-20.0)
--- NOTE | 2019-09-21 15:13 | NUR ---
CALLED [facility].
[2019-09-21] MEDS ORDERED: OLANZAPINE 5 MG TABLET PO ONE (15:30)
--- NOTE | 2019-09-21 15:30 | NUR ---
CALLED [facility] COMMUNITY HEALTH EDUCATOR.
[2019-09-21] MEDS ORDERED: OLANZAPINE 5 MG TABLET ONE (15:33)
--- NOTE | 2019-09-21 15:53 | NUR ---
CALLED RISHI AND WILL BE COMING IN 1 HOUR.
--- NOTE | 2019-09-21 16:05 | NUR ---
fax clinicals [phone] juanita
--- NOTE | 2019-09-21 16:21 | NUR ---
FAXED CLINICALS TO [place].
--- NOTE | 2019-09-21 17:20 | NUR ---
RISHI AT BEDSIDE FOR EVAL.
--- NOTE | 2019-09-21 18:28 | NUR ---
RISHI'S EVAL NOTE FAXED TO [facility]. -
[2019-09-21] MEDS ORDERED: OLANZAPINE 10 MG VIAL IM ONE (18:30)
--- NOTE | 2019-09-21 19:51 | NUR ---
ACCEPTED AT [facility] UNIT 1; # FOR REPORT [phone] ACCEPTING Eli JOHN TRANSPORT ETA 60-90 MINS
--- NOTE | 2019-09-21 20:19 | NUR ---
report given to césar lopez at [facility]
--- NOTE | 2019-09-21 20:20 | NUR ---
Pt going to [address] [place] [address]
[2019-09-21 21:00] VITALS: BP 109/74
--- NOTE | 2019-09-21 21:00 | NUR ---
prn ambulance in facility, report given staff, pt in stable condition, vss, belongings given to ambulance staff.
--- NOTE | 2019-09-21 21:22 | NUR ---
pt left to [facility] via private amb
== END 2019-09-21 21:27 | disposition home or self-care (01) ==
LOC: ER 14:21
DX: R45.851 Suicidal ideations (principal); F23 Brief psychotic disorder; F12.10 Cannabis abuse, uncomplicated; M54.9 Dorsalgia, unspecified; G89.29 Other chronic pain; Z59.0 Homelessness; Z91.19 Patient's noncompliance with other medical treatment and regimen
CPT/HCPCS: 36415; 80048; 80076; 80305; 80307; 80329; 85025; 99284; G0480

== ENCOUNTER 2019-10-20 21:19 | Emergency (ER) | payer OTHER ==
[~2019-10-20] VITALS: Ht 180.3 cm; Wt 81.6 kg
--- NOTE | 2019-10-20 22:00 | NUR ---
PT CAME TO THE ED C/O SI W/ A PLAN TO OVERDOSE HIMSELF W/ HIS MEDICATIONS. PT AAOX4, VSS, RESPIRATIONS EVEN AND UNLABORED ON RA W/ AND NTOED. PT CONNECTED TO THE MONITOR AND POX, CHANGED INTO GOWN, BELONGINGS PLACED INTO LOCKER, PLACED ON SAFETY PRECAUTIONS. SITTER AT BEDSIDE FOR SAFETY Addendum: 10/21/19 at 0706 by NOEL PER [facility] PAT,CALL BACK IN 20 MINS.
--- NOTE | 2019-10-20 22:19 | NUR ---
URINE COLLECTED AND SENT TO LAB
[2019-10-20] MEDS ORDERED: ACETAMINOPHEN ES 500 MG TABLET ONE (22:20)
[2019-10-20] MEDS ORDERED: OLANZAPINE 5 MG TABLET ONE (22:20)
[2019-10-20 22:25] LABS: APPEARANCE,URINE Clear (CLEAR); BILIRUBIN,URINE Negative (NEGATIVE); BLOOD, URINE Negative Ery/uL (NEGATIVE); COLOR,URINE Yellow (YELLOW); KETONES,URINE Negative (NEGATIVE); LEUKOCYTE ESTERASE ,URINE Negative (NEGATIVE); NITRITE, URINE Negative (NEGATIVE); PROTEIN,URINE Negative (NEGATIVE); UGLUCOSE Negative (NEGATIVE); UROBILINOGEN,URINE 0.2 EU/dL (0.2)
[2019-10-20] MEDS ORDERED: OLANZAPINE 5 MG TABLET PO ONE (22:30)
[2019-10-20] MEDS ORDERED: ACETAMINOPHEN ES 500 MG TABLET PO ONE (22:30)
[2019-10-20] MEDS ORDERED: HYDROCODONE/APAP 10/325MG 1 EA TABLET PO ONE (22:30)
[2019-10-20 22:33] LABS: BASOPHILS % (AUTO) 0.7 % (0.0-2.0); EOSINOPHILS % (AUTO) 2.5 % (0.0-6.0); HEMATOCRIT 42 % (39-51); HEMOGLOBIN 14.1 g/dL (13.5-17.5); LYMPHOCYTES # (AUTO) 2.5 /CMM (0.8-4.8); LYMPHOCYTES % (AUTO) 35.4 % (20.0-44.0); MEAN CORPUSCULAR HGB CONC 34 g/dl (31.0-36.0); MEAN CORPUSCULAR VOLUME 93 fL (80-96); MONOCYTES # (AUTO) 0.8 /CMM (0.1-1.30); MONOCYTES % (AUTO) 10.9 % (2.0-12.0); NEUTROPHILS # (AUTO) 3.6 /CMM (1.8-8.9); NEUTROPHILS % (AUTO) 50.5 % (43.0-81.0); PLATELET COUNT (AUTO) 242 /CMM (150-450)
[2019-10-20 23:13] LABS: CALCIUM, SERUM 9.3 mg/dL (8.5-10.1); CARBON DIOXIDE 32 mmol/L (21-32); CHLORIDE 102 mmol/L (98-107); CREATININE 1.3 mg/dL (0.6-1.3); GLUCOSE 90 mg/dL (74-106); POTASSIUM 3.6 mmol/L (3.5-5.1); SODIUM SERUM 140 mmol/L (136-145); UREA NITROGEN, BLOOD 19 mg/dL (7-18)
[2019-10-20 23:27] LABS: ACETAMINOPHEN 0 ug/ml (10-30); ALANINE AMINOTRANSFERASE 27 U/L (12-78); ALBUMIN 3.8 g/dL (3.4-5.0); ALCOHOL, BLOOD < 3 mg/dL (0-0); ALKALINE PHOSPHATASE 58 U/L (46-116); ASPARTATE AMINOTRANSFERASE 29 U/L (15-37); BILIRUBIN,DIRECT 0.1 mg/dL (0.0-0.2); BILIRUBIN,TOTAL 0.2 mg/dL (0.2-1.0); SALICYLATE 3.3 mg/dL (2.8-20.0); TOTAL PROTEIN, SERUM 7.9 g/dL (6.4-8.2)
--- NOTE | 2019-10-20 23:37 | NUR ---
PAGED JEREMÍAS SOLANOP
--- NOTE | 2019-10-21 03:33 | NUR ---
PT RESTING IN BED COMFORTABLY. VSS. NO ACUTE DISTRESS NOTED. SITTER AT BEDSIDE FOR SAFETY
--- NOTE | 2019-10-21 03:40 | NUR ---
[facility] CALLED REQUESTING TO FAX OVER COVID MEDICAL SCREENING EXAM. WILL FAX REQUESTED.
--- NOTE | 2019-10-21 04:00 | NUR ---
COVID MEDICAL SCREENING FAX REQUESTED
--- NOTE | 2019-10-21 04:40 | NUR ---
PT ASLEEP. VSS. SITTER AT BEDSIDE FOR SAFETY. WILL CONTINUE TO MONITOR
--- NOTE | 2019-10-21 04:47 | NUR ---
PETB TEAM FROM STACY AT THE BED SIDE FOR EVAL
--- NOTE | 2019-10-21 05:10 | NUR ---
PT PLACED ON 5150 HOLD BY TANYA VERONICA BUSINESS INSIGHT AND ANALYTICS MANAGER.
--- NOTE | 2019-10-21 06:20 | NUR ---
PT ASLEEP. VSS. SITTER AT BEDSIDE FOR SAFETY. WILL CONTINUE TO MONITOR
--- NOTE | 2019-10-21 07:01 | NUR ---
REC'D A CALL FROM [facility]ORGAN W/ TRANSPO INFO. PT GOT ACCEPTED AT [facility] UNIT [address] JUAREZ. # FOR REPORT: [phone] GLADYS TRANSPSylvia IN 60-90 MIN
--- NOTE | 2019-10-21 07:06 | NUR ---
Narayan tan in [facility] - 10/21/19 at 0707 by NOEL PER HILARY TIAN CALL BACK IN 30 MINS FOR REPORT
--- NOTE | 2019-10-21 07:07 | NUR ---
PER [facility] JAYLAN CALL BACK IN 30 MINS FOR REPORT
--- NOTE | 2019-10-21 07:15 | NUR ---
RECEIVED REPORT FROM HAI SLAUGHTER FOR HWOIE, PT IS AAOX4, NOT IN RESPIRATORY DISTRESS, V/S STABLE, KEPT RESTED AND COMFORTABLE.
--- NOTE | 2019-10-21 07:29 | NUR ---
REPORT GIVEN TO CORNEL DENG RN FOR HOWIE
--- NOTE | 2019-10-21 07:33 | NUR ---
PER [facility] PAT, CALL BACK IN 5 MINS
--- NOTE | 2019-10-21 07:42 | NUR ---
REPORT GIVEN TO HAI HDZ FROM [facility]
[2019-10-21 08:05] VITALS: BP 133/61
--- NOTE | 2019-10-21 08:06 | NUR ---
REPORT GIVEN TO EMS FOR PT TRANSFER TO [facility].
== END 2019-10-21 08:11 ==
LOC: ER 21:19
DX: R44.0 Auditory hallucinations (principal); R45.851 Suicidal ideations; F17.210 Nicotine dependence, cigarettes, uncomplicated; F32.9 Major depressive disorder, single episode, unspecified; Z59.0 Homelessness
CPT/HCPCS: 36415; 80048; 80076; 80305; 80307; 80329; 81001; 85025; 99285; 99406; G0480; 81000-TC

== ENCOUNTER 2020-01-06 16:30 | Emergency (ER) | payer OTHER ==
[~2020-01-06] VITALS: Ht 180.3 cm; Wt 79.4 kg
--- NOTE | 2020-01-06 16:30 | NUR ---
PT BIB SELF C/O +SI/-HI "i want to shoot myself" PT IS AAOX4, NOT IN RESPIRATORY DISTRESS, V/S STABLE, KEPT RESTED AND COMFORTABLE. WILL CONTINUE TO MONITOR.
--- NOTE | 2020-01-06 17:00 | NUR ---
PT SEEN AND EXAMINED BY .
--- NOTE | 2020-01-06 17:05 | NUR ---
ER PHLEB AT BEDSIDE FOR BLOOD DRAW.
[2020-01-06 17:14] LABS: BASOPHILS % (AUTO) 0.3 % (0.0-2.0); EOSINOPHILS % (AUTO) 1.3 % (0.0-6.0); HEMATOCRIT 46 % (39-51); HEMOGLOBIN 15.2 g/dL (13.5-17.5); LYMPHOCYTES # (AUTO) 1.6 /CMM (0.8-4.8); LYMPHOCYTES % (AUTO) 28.4 % (20.0-44.0); MEAN CORPUSCULAR HGB CONC 33 g/dl (31.0-36.0); MEAN CORPUSCULAR VOLUME 94 fL (80-96); MONOCYTES # (AUTO) 0.6 /CMM (0.1-1.30); MONOCYTES % (AUTO) 9.9 % (2.0-12.0); NEUTROPHILS # (AUTO) 3.4 /CMM (1.8-8.9); NEUTROPHILS % (AUTO) 60.1 % (43.0-81.0); PLATELET COUNT (AUTO) 248 /CMM (150-450); RED BLOOD CELL COUNT(AUTO) 4.95 MIL/uL (4.5-6.0); WHITE BLOOD COUNT (AUTO) 5.7 K/uL (4.3-11.0)
--- NOTE | 2020-01-06 17:14 | NUR ---
URINE SPECIMEN COLLECTED AND SENT TO LAB.
[2020-01-06 17:19] LABS: APPEARANCE,URINE Clear (CLEAR); BILIRUBIN,URINE MODERATE (NEGATIVE); BLOOD, URINE Negative Ery/uL (NEGATIVE); KETONES,URINE 15 (NEGATIVE); LEUKOCYTE ESTERASE ,URINE Negative (NEGATIVE); NITRITE, URINE Negative (NEGATIVE); PROTEIN,URINE 30 mg/dl (NEGATIVE); UGLUCOSE Negative (NEGATIVE)
[2020-01-06 17:20] LABS: CALCIUM, SERUM 9.5 mg/dL (8.5-10.1); CARBON DIOXIDE 27 mmol/L (21-32); CHLORIDE 102 mmol/L (98-107); CREATININE 1.2 mg/dL (0.6-1.3); GLUCOSE 98 mg/dL (74-106); POTASSIUM 3.5 mmol/L (3.5-5.1); SODIUM SERUM 139 mmol/L (136-145); UREA NITROGEN, BLOOD 18 mg/dL (7-18)
[2020-01-06 17:26] LABS: ALANINE AMINOTRANSFERASE 25 U/L (12-78); ALBUMIN 4.4 g/dL (3.4-5.0); ALCOHOL, BLOOD < 3 mg/dL (0-0); ALKALINE PHOSPHATASE 67 U/L (46-116); ASPARTATE AMINOTRANSFERASE 23 U/L (15-37); BILIRUBIN,DIRECT 0.2 mg/dL (0.0-0.2); BILIRUBIN,TOTAL 0.6 mg/dL (0.2-1.0); SALICYLATE 3.3 mg/dL (2.8-20.0); TOTAL PROTEIN, SERUM 8.5 g/dL (6.4-8.2)
[2020-01-06 17:29] LABS: ACETAMINOPHEN < 2 ug/ml (10-30)
[2020-01-06 17:36] LABS: COLOR,URINE DARK YELLOW (YELLOW)
[2020-01-06 17:38] LABS: BACTERIA,URINE Few /HPF (None Seen); RBC,URINE 0-2 /HPF (0-2); SQUAMOUS EPITHELIAL CELL,UR Few /HPF (None Seen)
[2020-01-06 17:39] LABS: MUCUS,URINE Many /LPF (None Seen)
--- NOTE | 2020-01-06 19:36 | NUR ---
CLINICAL INFORMATION FAXED TO [facility]
--- NOTE | 2020-01-06 19:40 | NUR ---
CALLED JEREMÍAS EASLEY
--- NOTE | 2020-01-06 19:45 | NUR ---
DR. BURDICK SPEAKING WITH JEREMÍAS STOMR
--- NOTE | 2020-01-06 20:40 | NUR ---
REC'D NEG COVID RESULTS. AWARE. [facility]
--- NOTE | 2020-01-06 21:46 | NUR ---
PRT ACCEPTED AT [facility] UNDER THE CARE OF DR. PENDLETON AND DR ALEX. CALL [phone] EXT [phone] FOR REPORT.
--- NOTE | 2020-01-06 22:23 | NUR ---
CLINICAL INFORMATION FAXED ([phone]) TO [facility] JOHN (PHONE: [phone]) PER REQUEST. INFORMED OF BED AVAILABILITY TO [facility] NOT CONTRACTED WITH [facility].
--- NOTE | 2020-01-06 23:26 | NUR ---
SPOKE WITH JOHN FROM [facility], INGRID STEWART CLINICIAN EN ROUTE TO EVALUATE PATIENT. ETA 60-90 MINUTES
--- NOTE | 2020-01-07 02:31 | NUR ---
INGRID STEWART CLINICIAN, BOB, AT BEDSIDE FOR EVALUATION
--- NOTE | 2020-01-07 02:45 | NUR ---
PT PLACED ON 5150 HOLD, DTS. PT WILL BE TRANSFERRED TO [facility], UNIT 2 ACCEPTING MD: DR. LARRY ROJAS, LPT HE WILL INFORM [place] OF 5150. PENDING TRANSPORTATION INFORMATION BY [place].
--- NOTE | 2020-01-07 04:04 | NUR ---
[facility] AM[facility]ULANCE ETA 0500 NUMBER FOR REPORT @ [facility] EMERGENCY DEPARTMENT VERENABRA:
--- NOTE | 2020-01-07 04:18 | NUR ---
REPORT GIVEN TO [facility]I [facility] FOR HOWIE
--- NOTE | 2020-01-07 04:53 | NUR ---
REPORT GIVEN TO [facility] FOR TRANSPORTATION HOWIE. PT TRANSFERRED TO [facility] IN STABLE CONDITION
[2020-01-07 04:54] VITALS: BP 124/88
== END 2020-01-07 05:13 ==
LOC: ER 16:32
DX: R45.851 Suicidal ideations (principal); F25.9 Schizoaffective disorder, unspecified; F14.10 Cocaine abuse, uncomplicated; Z59.0 Homelessness; F17.200 Nicotine dependence, unspecified, uncomplicated; Z11.59 Encounter for screening for other viral diseases
CPT/HCPCS: 36415; 80048; 80076; 80305; 80307; 80329; 81001; 85025; 87426; 99285; G0480; 81000-TC

== ENCOUNTER 2020-01-17 11:48 | Emergency (ER) | payer OTHER ==
[~2020-01-17] VITALS: Ht 180.3 cm; Wt 79.4 kg
[2020-01-17 11:59] VITALS: BP 135/69
--- NOTE | 2020-01-17 12:04 | NUR ---
AT BEDSIDE FOR EVAL.
[2020-01-17] MEDS ORDERED: ACETAMINOPHEN ES 500 MG TABLET ONE (12:08)
[2020-01-17] MEDS ORDERED: IBUPROFEN 600 MG TABLET PO ONE ×2 (12:08→12:30)
[2020-01-17] MEDS ORDERED: ACETAMINOPHEN ES 500 MG TABLET PO ONE (12:30)
--- NOTE | 2020-01-17 12:36 | NUR ---
CALLED RADIOLOGY TO FOLLOW UP XRAY.
--- NOTE | 2020-01-17 12:40 | NUR ---
BOTTOMING ROOM INSPECTOR AT BEDSIDE FOR XRAY.
--- NOTE | 2020-01-17 13:41 | NUR ---
Patient discharged to home in stable condition. Written and verbal after care instructions given. Patient verbalizes understanding of instruction.
== END 2020-01-17 13:43 | disposition home or self-care (01) ==
LOC: ER 11:53
DX: M25.512 Pain in left shoulder (principal); G89.29 Other chronic pain; M54.9 Dorsalgia, unspecified; Z59.0 Homelessness
CPT/HCPCS: 73030-TC

== ENCOUNTER 2020-01-18 15:22 | Emergency (ER) | payer OTHER ==
[~2020-01-18] VITALS: Ht 180.3 cm; Wt 79.4 kg
--- NOTE | 2020-01-18 15:29 | NUR ---
CAME IN FOR SUICIDAL IDEATION, HOMELESS. "VOICES TELLING ME TO OVERDOSE ON PSYCH MEDICATION". TO ER BED 15, HOOKED TO MONITOR, CHANGED TO HOSP GOWN, WARM BLANKET PROVIDED. PATIENT AAO x 4, BREATHING EVEN AND UNLABORED. SITTER AT BEDSIDE FOR SAFETY.
--- NOTE | 2020-01-18 15:30 | NUR ---
DR OLMOS AT BEDSIDE
--- NOTE | 2020-01-18 15:37 | NUR ---
SECURITY AT BEDSIDE FOR WANDING
[2020-01-18 15:54] LABS: BASOPHILS % (AUTO) 0.6 % (0.0-2.0); EOSINOPHILS % (AUTO) 2.2 % (0.0-6.0); HEMATOCRIT 41 % (39-51); HEMOGLOBIN 13.6 g/dL (13.5-17.5); LYMPHOCYTES # (AUTO) 1.9 /CMM (0.8-4.8); MEAN CORPUSCULAR HGB CONC 33 g/dl (31.0-36.0); MEAN CORPUSCULAR VOLUME 92 fL (80-96); MONOCYTES # (AUTO) 0.6 /CMM (0.1-1.30); MONOCYTES % (AUTO) 9.8 % (2.0-12.0); NEUTROPHILS # (AUTO) 3.8 /CMM (1.8-8.9); NEUTROPHILS % (AUTO) 58.4 % (43.0-81.0); PLATELET COUNT (AUTO) 282 /CMM (150-450); RED BLOOD CELL COUNT(AUTO) 4.44 MIL/uL (4.5-6.0); WHITE BLOOD COUNT (AUTO) 6.4 K/uL (4.3-11.0)
[2020-01-18 16:16] LABS: CALCIUM, SERUM 9.1 mg/dL (8.5-10.1); CARBON DIOXIDE 31 mmol/L (21-32); CHLORIDE 102 mmol/L (98-107); GLUCOSE 78 mg/dL (74-106); POTASSIUM 3.6 mmol/L (3.5-5.1); SODIUM SERUM 139 mmol/L (136-145); UREA NITROGEN, BLOOD 13 mg/dL (7-18)
[2020-01-18 16:31] LABS: ALANINE AMINOTRANSFERASE 30 U/L (12-78); ALCOHOL, BLOOD < 3 mg/dL (0-0); ALKALINE PHOSPHATASE 56 U/L (46-116); ASPARTATE AMINOTRANSFERASE 27 U/L (15-37); BILIRUBIN,DIRECT 0.1 mg/dL (0.0-0.2); BILIRUBIN,TOTAL 0.3 mg/dL (0.2-1.0); SALICYLATE 3.3 mg/dL (2.8-20.0); TOTAL PROTEIN, SERUM 8.1 g/dL (6.4-8.2)
--- NOTE | 2020-01-18 16:56 | NUR ---
URINE SAMPLE COLLECTED ANS SENT TO LAB
[2020-01-18 17:24] LABS: ACETAMINOPHEN < 10 ug/ml (10-30)
[2020-01-18 17:25] LABS: APPEARANCE,URINE CLEAR (CLEAR); BILIRUBIN,URINE NEGATIVE (NEGATIVE); BLOOD, URINE NEGATIVE Ery/uL (NEGATIVE); COLOR,URINE YELLOW (YELLOW); KETONES,URINE NEGATIVE (NEGATIVE); LEUKOCYTE ESTERASE ,URINE NEGATIVE (NEGATIVE); NITRITE, URINE NEGATIVE (NEGATIVE); PH,URINE 7.5 (5.0-8.0); PROTEIN,URINE NEGATIVE (NEGATIVE); UGLUCOSE NEGATIVE (NEGATIVE); UROBILINOGEN,URINE 0.2 EU/dL (0.2)
--- NOTE | 2020-01-18 18:51 | NUR ---
PATIENT IN BED AWAKE, COMFORTABLE IN BED. HOOKED TO MONITOR. VSS. NAD NOTED. SITTER AT BEDSIDE FOR SAFETY. WILL CONTINUE TO MONITOR ACCORDINGLY.
--- NOTE | 2020-01-18 19:27 | NUR ---
JEREMÍAS EPRP PAGED PER DR OLMOS
--- NOTE | 2020-01-18 20:35 | NUR ---
COVID NEGATIVE PER LAB
--- NOTE | 2020-01-18 20:36 | NUR ---
[facility], INFORMED NEG COVID RESULTS
--- NOTE | 2020-01-18 20:38 | NUR ---
Patient is COVID (-) negative
--- NOTE | 2020-01-18 21:23 | NUR ---
RISHI CRISIS TEAM PAGED
--- NOTE | 2020-01-18 21:23 | NUR ---
[facility] - [phone]. REQUESTING TO HAVE PT EVAL BY CRISIS TEAM.
--- NOTE | 2020-01-19 01:02 | NUR ---
PT RESTING COMFORTABLY IN BED. NAD NOTED. SITTER AT BEDSIDE FOR SAFETY
--- NOTE | 2020-01-19 02:13 | NUR ---
CRISIS CHILD CARE HAI BLACKWELL AT BEDSIDE
--- NOTE | 2020-01-19 02:45 | NUR ---
Pt packet faxed to [facility]. Ufd-[phone]. Chbsl-[phone]
--- NOTE | 2020-01-19 06:00 | NUR ---
SPOKE WITH [place], PT WILL BE TRANSFERRED TO [facility] UNIT ROOM 311-A VIA AMBULANCE ETA 60-90 MINS.
--- NOTE | 2020-01-19 06:15 | NUR ---
CALL FROM [facility]. STATE THAT WILL NOT BE ABLE TO ACCEPT PATIENT UNLESS ON 5150 HOLD.
--- NOTE | 2020-01-19 08:33 | NUR ---
ASSESSED PT ON BED ASLEEP EASILY AROUSABLE. AAOX3, NOT IN RESPIRATORY DISTRESS, V/S STABLE, KEPT RESTED AND COMFORTABLE. WILL CONTINUE TO MONITOR.
--- NOTE | 2020-01-19 09:27 | NUR ---
GEORGINA DAVILA CALL HER AFTER PT IS ON 5150 HOLD.
--- NOTE | 2020-01-19 09:55 | NUR ---
FOOD TRAY PROVIDED.
--- NOTE | 2020-01-19 10:31 | NUR ---
FAXED 5150 HOLD TO GEORGINA, AT [facility], STATES WILL CALL BACK WITH TRANSFER INFO
--- NOTE | 2020-01-19 11:13 | NUR ---
PT IS ACCEPTED AT [facility] BY AT [facility] ROOM 311-A # FOR REPORT [phone] AMBULANCE PRN ETA [id number]
--- NOTE | 2020-01-19 11:19 | NUR ---
REPORT GIVEN TO HAI CRUZ OF [facility].
--- NOTE | 2020-01-19 12:18 | NUR ---
Report given for transport to [facility] psyc facility
[2020-01-19 12:25] VITALS: BP 129/77
--- NOTE | 2020-01-19 12:25 | NUR ---
REPORT GIVEN TO EMT FOR PT TRANSFER TO [facility].
== END 2020-01-19 12:34 ==
LOC: ER 15:22
DX: R45.851 Suicidal ideations (principal); Z59.0 Homelessness; G89.29 Other chronic pain; M54.9 Dorsalgia, unspecified; Z86.59 Personal history of other mental and behavioral disorders; Z20.828 Contact with and (suspected) exposure to other viral communicable diseases
CPT/HCPCS: 36415; 80048; 80076; 80305; 80307; 80329; 81001; 85025; 87426; 99285; G0480; 81000-TC

== ENCOUNTER 2020-02-03 10:32 | Emergency (ER) | payer OTHER ==
[~2020-02-03] VITALS: Ht 175.3 cm; Wt 65.8 kg
--- NOTE | 2020-02-03 10:40 | NUR ---
c/o testicular pain on and off 5/10 ps "i feel like something is crawling my thigh". On room air, breathing evenly and unlabored. connected to the monitor and pulse ox. kept comfortable, will continue to monitor accordingly.
--- NOTE | 2020-02-03 10:50 | NUR ---
URINE SPECIMEN COLLECTED AND SENT TO LAB.
--- NOTE | 2020-02-03 10:57 | NUR ---
TECH AT BEDSIDE FOR SCROTAL US.
[2020-02-03 10:59] LABS: APPEARANCE,URINE Clear (CLEAR); BILIRUBIN,URINE MODERATE (NEGATIVE); BLOOD, URINE Negative Ery/uL (NEGATIVE); KETONES,URINE 15 (NEGATIVE); LEUKOCYTE ESTERASE ,URINE Negative (NEGATIVE); NITRITE, URINE Negative (NEGATIVE); PROTEIN,URINE 30 mg/dl (NEGATIVE); UGLUCOSE Negative (NEGATIVE)
[2020-02-03 11:00] LABS: COLOR,URINE DARK YELLOW (YELLOW)
[2020-02-03 11:01] LABS: BACTERIA,URINE Few /HPF (None Seen); MUCUS,URINE Few /LPF (None Seen); SQUAMOUS EPITHELIAL CELL,UR Few /HPF (None Seen); WBC,URINE 0-2 /HPF (0-3)
[2020-02-03 12:17] VITALS: BP 121/71
--- NOTE | 2020-02-03 12:17 | NUR ---
Patient discharged to home in stable condition. Written and verbal after care instructions given. Patient verbalizes understanding of instruction.
== END 2020-02-03 12:17 | disposition home or self-care (01) ==
LOC: ER 10:32
DX: N50.3 Cyst of epididymis (principal); G89.29 Other chronic pain; M54.9 Dorsalgia, unspecified; F20.9 Schizophrenia, unspecified; F17.200 Nicotine dependence, unspecified, uncomplicated; Z59.0 Homelessness
CPT/HCPCS: 76870-TC; 81000-TC

== ENCOUNTER 2020-04-05 11:25 | Emergency (ER) | payer OTHER ==
[~2020-04-05] VITALS: Ht 180.3 cm; Wt 77.1 kg
[2020-04-05 12:23] LABS: APPEARANCE,URINE Clear (CLEAR); BILIRUBIN,URINE Negative (NEGATIVE); BLOOD, URINE Negative Ery/uL (NEGATIVE); COLOR,URINE Yellow (YELLOW); KETONES,URINE Negative (NEGATIVE); LEUKOCYTE ESTERASE ,URINE Negative (NEGATIVE); NITRITE, URINE Negative (NEGATIVE); PROTEIN,URINE Negative (NEGATIVE); UGLUCOSE Negative (NEGATIVE); UROBILINOGEN,URINE 0.2 EU/dL (0.2)
[2020-04-05] MEDS ORDERED: OLANZAPINE 5 MG TABLET PO ONE (12:30)
[2020-04-05] MEDS ORDERED: OLANZAPINE 5 MG TABLET ONE (12:32)
[2020-04-05 12:38] LABS: BASOPHILS % (AUTO) 0.7 % (0.0-2.0); EOSINOPHILS % (AUTO) 1.4 % (0.0-6.0); HEMATOCRIT 41 % (39-51); HEMOGLOBIN 13.7 g/dL (13.5-17.5); LYMPHOCYTES # (AUTO) 1.2 /CMM (0.8-4.8); LYMPHOCYTES % (AUTO) 24.3 % (20.0-44.0); MEAN CORPUSCULAR HGB CONC 33 g/dl (31.0-36.0); MEAN CORPUSCULAR VOLUME 94 fL (80-96); MONOCYTES # (AUTO) 0.4 /CMM (0.1-1.30); NEUTROPHILS # (AUTO) 3.1 /CMM (1.8-8.9); NEUTROPHILS % (AUTO) 64.6 % (43.0-81.0); PLATELET COUNT (AUTO) 206 /CMM (150-450); WHITE BLOOD COUNT (AUTO) 4.9 K/uL (4.3-11.0)
--- NOTE | 2020-04-05 12:40 | NUR ---
BIBS TO ER BED 14. AAOX4. NOT IN RESP DISTRESS. AMBULATORY. CAME IN FOR SUICIDAL IDEATION BECAUSE HE IS HEARING VOICES TELLING HIM TO HURT HIMSELF. PT IS SEEKING VOLUNTARY INPATIENT CARE. DENIES HI. PT WAS STRIPPED OFF CLOTHINGS AND BELONGINGS PLACED IN LOCKER IN UTILITY ROOM. VISUALLY CHECKED. 1:1 SITTER AT BEDSIDE. WAS AT THE BEDSIDE FOR EVAL. ORDERS RECEIVED NOTED AND CARRIED OUT. MEDICATED ORDERED
[2020-04-05 12:44] LABS: CALCIUM, SERUM 9.1 mg/dL (8.5-10.1); CARBON DIOXIDE 29 mmol/L (21-32); CHLORIDE 103 mmol/L (98-107); CREATININE 0.9 mg/dL (0.6-1.3); GLUCOSE 80 mg/dL (74-106); POTASSIUM 3.3 mmol/L (3.5-5.1); SODIUM SERUM 139 mmol/L (136-145); UREA NITROGEN, BLOOD 13 mg/dL (7-18)
[2020-04-05 12:50] LABS: ALANINE AMINOTRANSFERASE 22 U/L (12-78); ALBUMIN 3.8 g/dL (3.4-5.0); ALCOHOL, BLOOD < 3 mg/dL (0-0); ALKALINE PHOSPHATASE 47 U/L (46-116); ASPARTATE AMINOTRANSFERASE 32 U/L (15-37); BILIRUBIN,DIRECT 0.1 mg/dL (0.0-0.2); BILIRUBIN,TOTAL 0.4 mg/dL (0.2-1.0); TOTAL PROTEIN, SERUM 7.6 g/dL (6.4-8.2)
[2020-04-05 12:51] LABS: ACETAMINOPHEN 0 ug/ml (10-30)
--- NOTE | 2020-04-05 15:19 | NUR ---
Juvenile Court Liaison contact [facility] . Per [facility] Wine Maker Leti, Emergency Department MD must open a case with [facility] regarding patient's voluntary psychiatric treatment needs .
--- NOTE | 2020-04-05 16:14 | NUR ---
3:35pm Bottle Hop consult requested by ED HAI Zhang as patient presents to [facility] ED with suicidal ideation. Patient is a 25-year-old male. Patient was asleep when this SW approached, patient was easily arousable by SW calling out patients name. Once awake, patient remained lying in bed and made some direct eye-contact with this SW during this assessment. Patient reports that he has been homeless for two years. Patient reports that he is from [facility] and knows of all local areas for hygiene, food pantries, and mental health resources. Patient reports that he is currently receiving food stamps but cannot remember approximately how much he receives per month. 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 Patient reports recent marijuana use. Patient did not want to report amount of use and frequency. Patient reports that he has been diagnosed with schizophrenia and patient fails to provide an approximation of when he was diagnosed. Patient reports that he has previously been to [facility] for voluntary psychiatric treatment. Patient reports his last hospitalization was approximately one month ago. Patient reports current suicidal ideation but does not report a plan, stating that he is hearing voices that are telling him to hurt himself. Patient also reports visual hallucination earlier today, stating its just random weird things. Patient and socially responsible investment adviser discussed voluntary psychiatric treatment. Patient is in agreement of voluntary treatment.
--- NOTE | 2020-04-05 16:14 | NUR ---
3:45pm Social Work to contact Neal at [facility] per patients request of voluntary treatment. Per Neal at [facility] patient is a [facility] patient and [facility] can provide more contracted facilities for this patient to seek treatment. SW to follow-up with [facility].
--- NOTE | 2020-04-05 16:15 | NUR ---
3:55pm DIMA spoke with ED continuous pickling line pickler helper Gener about patient being a [facility] patient and needing to open a [facility] case. ED continuous pickling line pickler helper Gener in agreement of plan. DIMA also discussed this plan with Dr. Laguna.
--- NOTE | 2020-04-05 16:15 | NUR ---
3:50pm DIMA spoke with [facility] sales representative business courses Leti , per Leti ED staff to open up a case for patient for [facility] to take over next step in treatment plan. DIMA was referred to [facility] psych review line .
--- NOTE | 2020-04-05 16:37 | NUR ---
CALLED [facility] FOR A PEER TO PEER
[2020-04-05 17:39] VITALS: BP 129/75
--- NOTE | 2020-04-05 17:46 | NUR ---
DINNER PROVIDED, TOLERATED PO WELL.
--- NOTE | 2020-04-05 18:26 | NUR ---
covid swab test collected and sent to lab
--- NOTE | 2020-04-05 18:58 | NUR ---
LAB CALLED PT COVID NEG (-)
--- NOTE | 2020-04-05 21:36 | NUR ---
CLINICALS FAXED TO [facility] AT [facility]
--- NOTE | 2020-04-05 21:54 | NUR ---
PER MOON MADISON FROM [facility] TEAM WILL BE HERE TO EVALUATE THE PT.
--- NOTE | 2020-04-05 23:40 | NUR ---
PRADEEP FROM [facility] AT BED SIDE
--- NOTE | 2020-04-06 00:54 | NUR ---
Patient is resting comfortably in bed with eyes closed. Easily aroused. VSS
--- NOTE | 2020-04-06 00:56 | NUR ---
FAXED CLINICALS TO [facility] BED FINDER AND CALLED TO CONFIRM. AWAITING FOR THEIR CALL BACK
--- NOTE | 2020-04-06 02:07 | NUR ---
RECEIVED A CALL FROM [facility] FIND[facility]: PT IS GOING TO [facility] AT [address] [place] [address]. [id number], [address]. # FOR REPORT: [phone] ACCEPTING MD: DR RENETTA YOUSSEF FOR [facility]: 0300
--- NOTE | 2020-04-06 02:13 | NUR ---
REPORT GIVEN TO CHLOE JO VERONICA
--- NOTE | 2020-04-06 03:04 | NUR ---
REPORT GIVEN TO [facility] FOR TRANSPORT TEAM FOR HOWIE. AND TRANSFERRING RESPONSIBILTIES.
--- NOTE | 2020-04-06 03:06 | NUR ---
Narayan tan in ED - 04/06/20 at 0431 by JIANOR CALLED RT, PT WILL BE ON BIPAP
== END 2020-04-06 04:34 ==
LOC: ER 11:29
DX: F25.9 Schizoaffective disorder, unspecified (principal); R45.851 Suicidal ideations; Z20.828 Contact with and (suspected) exposure to other viral communicable diseases; G89.29 Other chronic pain; M54.9 Dorsalgia, unspecified; Z59.0 Homelessness; Z82.49 Family history of ischemic heart disease and other diseases of the circulatory system
CPT/HCPCS: 36415; 80048; 80076; 80299; 80307; 80320; 81001; 85025; 87426; 99285; C9803; 81000-TC; G0480

== ENCOUNTER 2020-05-04 12:03 | Emergency (ER) | payer MEDICAID, OTHER ==
[~2020-05-04] VITALS: Ht 172.7 cm; Wt 77.1 kg
--- NOTE | 2020-05-04 12:05 | NUR ---
called security for wanding
--- NOTE | 2020-05-04 12:25 | NUR ---
bib self c/o "Im hearing voices/telling me to kill self-take all my pills. No control" vs checked. stable. urine collected. sent to lab Addendum: 05/04/20 at 1240 by DCABANOS placed on suicide precautions. sitter by bedside
--- NOTE | 2020-05-04 12:31 | NUR ---
COVID specimens sent to Lab
[2020-05-04] MEDS ORDERED: OLANZAPINE 5 MG TABLET PO ONE (13:00)
[2020-05-04] MEDS ORDERED: OLANZAPINE 5 MG TABLET ONE (13:10)
[2020-05-04 13:47] LABS: BASOPHILS # (AUTO) 0.1 /CMM (0.0-0.2); BASOPHILS % (AUTO) 1.2 % (0.0-2.0); EOSINOPHILS % (AUTO) 2.2 % (0.0-6.0); HEMATOCRIT 43 % (39-51); LYMPHOCYTES # (AUTO) 2.1 /CMM (0.8-4.8); MEAN CORPUSCULAR HGB CONC 33 g/dl (31.0-36.0); MEAN CORPUSCULAR VOLUME 93 fL (80-96); MONOCYTES # (AUTO) 0.6 /CMM (0.1-1.30); MONOCYTES % (AUTO) 10.6 % (2.0-12.0); NEUTROPHILS # (AUTO) 2.9 /CMM (1.8-8.9); PLATELET COUNT (AUTO) 271 /CMM (150-450); WHITE BLOOD COUNT (AUTO) 5.8 K/uL (4.3-11.0)
[2020-05-04 13:52] LABS: CALCIUM, SERUM 8.9 mg/dL (8.5-10.1); CREATININE 0.9 mg/dL (0.6-1.3); POTASSIUM 3.8 mmol/L (3.5-5.1)
[2020-05-04 13:58] LABS: BILIRUBIN,DIRECT 0.1 mg/dL (0.0-0.2); BILIRUBIN,TOTAL 0.4 mg/dL (0.2-1.0); TOTAL PROTEIN, SERUM 7.9 g/dL (6.4-8.2)
--- NOTE | 2020-05-04 16:40 | NUR ---
Transfer Machine Operator consult requested by ED RN Telma as patient presents to [facility] ED with suicidal ideation. Patient is a 25-year-old male. Patient was asleep when this SW approached, patient was easily arousable by SW calling out patients name. Once awake, patient remained lying in bed and made some direct eye-contact with this SW during this assessment. Patient reports that he has been homeless for two years. Patient reports he is receiving $200 in food stamps and $200 in [employer]. 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 Patient reports recent marijuana use. Patient did not want to report amount of use and frequency. Patient reports that he has been diagnosed with schizophrenia and patient fails to provide an approximation of when he was diagnosed. Patient reports that he has previously been to [facility] for voluntary psychiatric treatment. Patient reports current suicidal ideation but does not report a plan, stating that he is hearing voices that are telling him to hurt himself. Patient also reports visual hallucination earlier today, stating its just random weird things. Patient and director of social services discussed voluntary hospitalization. Patient is in agreement of voluntary hospitalization at [facility]. Patient was calm and cooperative throughout this assessment. Patient thought process is clear. SW remains available for all needs regarding this patient. Plan: DIMA to contact Neal at [facility] regarding this referral. and DIMA will fax clinicals to [phone].
--- NOTE | 2020-05-04 16:45 | NUR ---
Patient signed homeless patient waiver form. SW placed copy in the chart and informed ED RN Sal regarding signed waiver. Patient declined homeless resources.
--- NOTE | 2020-05-04 16:45 | NUR ---
PT ACCEPTED BY DR GRIER AT [facility] TO UNIT 2, RN FOR REPORT [phone], [facility] ETA 1800
--- NOTE | 2020-05-04 16:50 | NUR ---
[facility] ETA 1800
--- NOTE | 2020-05-04 17:12 | NUR ---
report given to eliana at [facility] for ciaran.
[2020-05-04 19:10] VITALS: BP 134/86
--- NOTE | 2020-05-04 19:49 | NUR ---
REPORT GIVEN TO EMS FOR TRANSFER.
== END 2020-05-04 23:41 ==
LOC: ER 12:08
DX: F20.9 Schizophrenia, unspecified (principal); R45.851 Suicidal ideations; Z59.0 Homelessness; G89.29 Other chronic pain; M54.9 Dorsalgia, unspecified; Z20.828 Contact with and (suspected) exposure to other viral communicable diseases; F12.10 Cannabis abuse, uncomplicated; F10.10 Alcohol abuse, uncomplicated; Y90.1 Blood alcohol level of 20-39 mg/100 ml
CPT/HCPCS: 36415; 80048; 80076; 80299; 80307; 80320; 85025; 87426; 99285; C9803; G0480

== ENCOUNTER 2020-06-22 18:16 | Emergency (ER) | payer MEDICAID ==
[~2020-06-22] VITALS: Ht 180.3 cm; Wt 74.8 kg
[2020-06-22 18:58] LABS: BASOPHILS % (AUTO) 0.5 % (0.0-2.0); EOSINOPHILS % (AUTO) 1.2 % (0.0-6.0); HEMATOCRIT 44 % (39-51); HEMOGLOBIN 14.4 g/dL (13.5-17.5); LYMPHOCYTES # (AUTO) 1.6 /CMM (0.8-4.8); LYMPHOCYTES % (AUTO) 18.7 % (20.0-44.0); MEAN CORPUSCULAR HGB CONC 33 g/dl (31.0-36.0); MEAN CORPUSCULAR VOLUME 94 fL (80-96); MONOCYTES # (AUTO) 0.8 /CMM (0.1-1.30); NEUTROPHILS % (AUTO) 70.6 % (43.0-81.0); PLATELET COUNT (AUTO) 257 /CMM (150-450); RED BLOOD CELL COUNT(AUTO) 4.63 MIL/uL (4.5-6.0); WHITE BLOOD COUNT (AUTO) 8.5 K/uL (4.3-11.0)
[2020-06-22 19:20] LABS: BILIRUBIN,URINE SMALL (NEGATIVE); COLOR,URINE YELLOW (YELLOW); LEUKOCYTE ESTERASE ,URINE Negative (NEGATIVE); NITRITE, URINE Negative (NEGATIVE); PROTEIN,URINE 30 mg/dl (NEGATIVE); UGLUCOSE Negative (NEGATIVE); UROBILINOGEN,URINE 0.2 EU/dL (0.2)
[2020-06-22 19:23] LABS: ALANINE AMINOTRANSFERASE 26 U/L (12-78); ALBUMIN 4.3 g/dL (3.4-5.0); ALCOHOL, BLOOD 20 mg/dL (0-0); ALKALINE PHOSPHATASE 54 U/L (46-116); ASPARTATE AMINOTRANSFERASE 34 U/L (15-37); BILIRUBIN,DIRECT 0.1 mg/dL (0.0-0.2); BILIRUBIN,TOTAL 0.3 mg/dL (0.2-1.0); CALCIUM, SERUM 9.3 mg/dL (8.5-10.1); CARBON DIOXIDE 26 mmol/L (21-32); CHLORIDE 101 mmol/L (98-107); CREATININE 1.1 mg/dL (0.6-1.3); GLUCOSE 72 mg/dL (74-106); POTASSIUM 3.8 mmol/L (3.5-5.1); SODIUM SERUM 140 mmol/L (136-145); TOTAL PROTEIN, SERUM 8.3 g/dL (6.4-8.2); UREA NITROGEN, BLOOD 17 mg/dL (7-18)
[2020-06-22 19:28] LABS: ACETAMINOPHEN < 2 ug/ml (10-30)
[2020-06-22 19:30] LABS: BACTERIA,URINE Rare /HPF (None Seen); RBC,URINE NONE SEEN /HPF (0-2); SQUAMOUS EPITHELIAL CELL,UR Few /HPF (None Seen); WBC,URINE NONE SEEN /HPF (0-3)
--- NOTE | 2020-06-22 19:30 | NUR ---
ASSUMED CARE AT THIS TIME. PT BIBSELF C/O SUICIDAL IDEATION WITH PLAN TO OVERDOSE. PT AAOX4. CALM AND COOPERATIVE. VITAL SIGNS STABLE. AMBULATORY WITH STEADY GAIT. NO ACUTE DISTRESS NOTED AT THIS TIME. WILL CONTINUE TO MONITOR
--- NOTE | 2020-06-22 21:33 | NUR ---
COVID NEGATIVE PER LAB
--- NOTE | 2020-06-23 01:52 | NUR ---
TRANSFER INFORMATION: PT [facility] TO [facility] ACCEPTING MD: DR. CALDERON NUMBER FOR REPORT: [phone]
--- NOTE | 2020-06-23 01:55 | NUR ---
CALLED [facility] FOR TRANSPORTATION, NO AMBULANCE AVAILABLE AT THIS TIME.
--- NOTE | 2020-06-23 01:57 | NUR ---
CALLED [facility] FOR TRANSPORTATION. ETA 0700
--- NOTE | 2020-06-23 05:24 | NUR ---
REPORT GIVEN TO HAI AVALOS FROM [facility] FOR HOWIE
[2020-06-23 07:20] VITALS: BP 131/89
--- NOTE | 2020-06-23 07:20 | NUR ---
REPORT GIVEN TO [facility] [id number] FOR TRANSPORTATION HOWIE
== END 2020-06-23 07:27 ==
LOC: ER 18:17
DX: R45.851 Suicidal ideations (principal); F10.10 Alcohol abuse, uncomplicated; F12.10 Cannabis abuse, uncomplicated; Z20.822 Contact with and (suspected) exposure to COVID-19; Y90.0 Blood alcohol level of less than 20 mg/100 ml; Z59.0 Homelessness; F20.9 Schizophrenia, unspecified; G89.29 Other chronic pain; M54.5 Low back pain; Z91.14 Patient's other noncompliance with medication regimen
CPT/HCPCS: 36415; 80048; 80076; 80299; 80307; 80320; 81001; 85025; 87426; 99285; C9803; G0480

== ENCOUNTER 2020-11-02 22:51 | Emergency (ER) | payer SELFPAY ==
[~2020-11-02] VITALS: Ht 172.7 cm; Wt 72.6 kg
--- NOTE | 2020-11-02 23:21 | NUR ---
LAB COMPLETED BLOOD DRAW, URINE AND COVID SWAB COLLECTED. SENT TO LAB
[2020-11-02 23:28] LABS: BASOPHILS % (AUTO) 0.6 % (0.0-2.0); HEMATOCRIT 42 % (39-51); HEMOGLOBIN 13.8 g/dL (13.5-17.5); LYMPHOCYTES # (AUTO) 1.8 /CMM (0.8-4.8); LYMPHOCYTES % (AUTO) 25.9 % (20.0-44.0); MEAN CORPUSCULAR HGB CONC 33 g/dl (31.0-36.0); MEAN CORPUSCULAR VOLUME 96 fL (80-96); MONOCYTES # (AUTO) 0.8 /CMM (0.1-1.30); MONOCYTES % (AUTO) 11.6 % (2.0-12.0); NEUTROPHILS # (AUTO) 4.3 /CMM (1.8-8.9); NEUTROPHILS % (AUTO) 60.9 % (43.0-81.0); PLATELET COUNT (AUTO) 260 /CMM (150-450); RED BLOOD CELL COUNT(AUTO) 4.37 MIL/uL (4.5-6.0)
[2020-11-02 23:40] LABS: CALCIUM, SERUM 9.2 mg/dL (8.5-10.1); CARBON DIOXIDE 29 mmol/L (21-32); CHLORIDE 104 mmol/L (98-107); CREATININE 1.3 mg/dL (0.6-1.3); GLUCOSE 74 mg/dL (74-106); POTASSIUM 3.4 mmol/L (3.5-5.1); SODIUM SERUM 142 mmol/L (136-145); UREA NITROGEN, BLOOD 15 mg/dL (7-18)
[2020-11-02 23:45] LABS: ALANINE AMINOTRANSFERASE 27 U/L (12-78); ALBUMIN 3.9 g/dL (3.4-5.0); ALCOHOL, BLOOD < 3 mg/dL (0-0); ASPARTATE AMINOTRANSFERASE 28 U/L (15-37); BILIRUBIN,DIRECT 0.1 mg/dL (0.0-0.2); BILIRUBIN,TOTAL 0.5 mg/dL (0.2-1.0); TOTAL PROTEIN, SERUM 7.5 g/dL (6.4-8.2)
[2020-11-02 23:49] LABS: ACETAMINOPHEN 0 ug/ml (10-30)
[2020-11-02 23:50] LABS: BILIRUBIN,URINE SMALL (NEGATIVE); COLOR,URINE YELLOW (YELLOW); LEUKOCYTE ESTERASE ,URINE NEGATIVE (NEGATIVE); NITRITE, URINE NEGATIVE (NEGATIVE); PROTEIN,URINE NEGATIVE (NEGATIVE); UGLUCOSE NEGATIVE (NEGATIVE); UROBILINOGEN,URINE 0.2 EU/dL (0.2)
[2020-11-03 00:07] LABS: ALKALINE PHOSPHATASE 57 U/L (46-116)
[2020-11-03 07:30] VITALS: BP 127/84
--- NOTE | 2020-11-03 07:30 | NUR ---
assume pt care, resting. denies any complain at this time.pt requested for food and was provided w/ breakfast tray. stable condition. denies si/hi upon assessment.
--- NOTE | 2020-11-03 09:05 | NUR ---
pt no longer at holding room. pt eloped.
--- NOTE | 2020-11-03 09:28 | NUR ---
Cook Frozen Dessert note: 8:52am: This INTERNATIONAL TAX MANAGER received a call from ED RN Sukh, requesting a social group worker consultation for this patient, who came to the ED for SI. Sukh stated that patient was in the waiting room. Per ED physician's note, patient came to the ED with complaints of SI, no HI, no hallucinations. Per patient's toxicology report, patient has tested positive for marijuana. This INTERNATIONAL TAX MANAGER arrived to the ED at 9:03am, in order to meet with the patient, however patient was not in the waiting room. Patient had eloped. HAI Luz also looked for the patient, and confirmed patient had eloped. This INTERNATIONAL TAX MANAGER informed Dr. Valdez. No further SS interventions needed at this time, however social group worker will remain available, if needed.
== END 2020-11-03 09:05 | disposition left against medical advice (07) ==
LOC: ER 22:53
DX: R45.851 Suicidal ideations (principal); F20.9 Schizophrenia, unspecified; Z20.822 Contact with and (suspected) exposure to COVID-19; Z59.0 Homelessness; F17.200 Nicotine dependence, unspecified, uncomplicated; G89.29 Other chronic pain; M54.9 Dorsalgia, unspecified
CPT/HCPCS: 36415; 80048; 80076; 80143; 80307; 80320; 81003; 85025; 87426; 99285; C9803; G0480

== ENCOUNTER 2021-02-08 06:44 | Emergency (ER) | payer MEDICAID ==
[~2021-02-08] VITALS: Ht 180.3 cm; Wt 77.1 kg
--- NOTE | 2021-02-08 07:10 | NUR ---
URINE COLLECTED AND SENT TO LAB
[2021-02-08] MEDS ORDERED: OLANZAPINE 5 MG TABLET ONE (07:18)
[2021-02-08] MEDS ORDERED: OLANZAPINE 5 MG TABLET PO ONE (07:30)
--- NOTE | 2021-02-08 07:30 | NUR ---
Patient came in to the er c/o paranoid. On room air, breathing evenly and unlabored. Kept comfortable, will continue to monitor accordingly.
[2021-02-08 07:47] LABS: BASOPHILS % (AUTO) 0.8 % (0.0-2.0); EOSINOPHILS % (AUTO) 5.3 % (0.0-6.0); HEMATOCRIT 43 % (39-51); HEMOGLOBIN 14.3 g/dL (13.5-17.5); LYMPHOCYTES # (AUTO) 1.5 K/uL (0.8-4.8); LYMPHOCYTES % (AUTO) 32.3 % (20.0-44.0); MEAN CORPUSCULAR HGB CONC 33 g/dl (31.0-36.0); MEAN CORPUSCULAR VOLUME 94 fL (80-96); MONOCYTES # (AUTO) 0.5 K/uL (0.1-1.30); MONOCYTES % (AUTO) 10.7 % (2.0-12.0); NEUTROPHILS # (AUTO) 2.3 K/uL (1.8-8.9); NEUTROPHILS % (AUTO) 50.9 % (43.0-81.0); PLATELET COUNT (AUTO) 246 K/uL (150-450); RED BLOOD CELL COUNT(AUTO) 4.58 MIL/uL (4.5-6.0); WHITE BLOOD COUNT (AUTO) 4.6 K/uL (4.3-11.0)
[2021-02-08 08:06] LABS: CALCIUM, SERUM 8.7 mg/dL (8.5-10.1); CARBON DIOXIDE 25 mmol/L (21-32); CHLORIDE 105 mmol/L (98-107); CREATININE 1.2 mg/dL (0.6-1.3); GLUCOSE 89 mg/dL (74-106); POTASSIUM 3.8 mmol/L (3.5-5.1); SODIUM SERUM 140 mmol/L (136-145); UREA NITROGEN, BLOOD 19 mg/dL (7-18)
[2021-02-08 08:10] LABS: BILIRUBIN,URINE SMALL (NEGATIVE); COLOR,URINE YELLOW (YELLOW); LEUKOCYTE ESTERASE ,URINE NEGATIVE (NEGATIVE); NITRITE, URINE NEGATIVE (NEGATIVE); PROTEIN,URINE NEGATIVE (NEGATIVE); UGLUCOSE NEGATIVE (NEGATIVE); UROBILINOGEN,URINE 0.2 EU/dL (0.2)
[2021-02-08 08:14] LABS: ACETAMINOPHEN 0 ug/ml (10-30); ALANINE AMINOTRANSFERASE 28 U/L (12-78); ALKALINE PHOSPHATASE 55 U/L (46-116); ASPARTATE AMINOTRANSFERASE 22 U/L (15-37); BILIRUBIN,DIRECT 0.2 mg/dL (0.0-0.2); BILIRUBIN,TOTAL 0.5 mg/dL (0.2-1.0); TOTAL PROTEIN, SERUM 7.6 g/dL (6.4-8.2)
[2021-02-08 08:15] LABS: ALCOHOL, BLOOD < 3 mg/dL (0-0)
[2021-02-08 08:18] LABS: BACTERIA,URINE Rare /HPF (None Seen); RBC,URINE 0-2 /HPF (0-2); SQUAMOUS EPITHELIAL CELL,UR Rare /HPF (None Seen); WBC,URINE 0-2 /HPF (0-3)
[2021-02-08 08:57] VITALS: BP 118/71
--- NOTE | 2021-02-08 08:57 | NUR ---
Patient discharged to home in stable condition. Written and verbal after care instructions given. Patient verbalizes understanding of instruction.
== END 2021-02-08 08:57 | disposition home or self-care (01) ==
LOC: ER 06:44
DX: F23 Brief psychotic disorder (principal); G89.29 Other chronic pain; F17.200 Nicotine dependence, unspecified, uncomplicated
CPT/HCPCS: 36415; 80048-TC; 80076-TC; 81001; 85025-TC; G0480

== ENCOUNTER 2021-05-30 09:46 | Emergency (ER) | payer MEDICAID ==
[~2021-05-30] VITALS: Ht 180.3 cm; Wt 72.6 kg
[2021-05-30 09:56] VITALS: BP 128/83
--- NOTE | 2021-05-30 10:16 | NUR ---
Patient discharged to home in stable condition. Written and verbal after care instructions given. Patient verbalizes understanding of instruction.
== END 2021-05-30 10:17 | disposition home or self-care (01) ==
LOC: ER 09:52
DX: J06.9 Acute upper respiratory infection, unspecified (principal); Z20.822 Contact with and (suspected) exposure to COVID-19; G89.29 Other chronic pain; F20.9 Schizophrenia, unspecified; M54.9 Dorsalgia, unspecified
CPT/HCPCS: 87426; 99283; C9803

== ENCOUNTER 2021-09-27 14:08 | Emergency (ER) | payer MEDICAID ==
[~2021-09-27] VITALS: Ht 180.3 cm; Wt 78.0 kg
--- NOTE | 2021-09-27 14:08 | NUR ---
PT BIB SELF C/O SI "I WANT TO SHOOT MY SELF" REQUESTING VOLUNTARY PSYCH ADMISSION. PT IS AAOX4, NOT IN RESPIRATORY DISTRESS, V/S STABLE, KEPT RESTED AND COMFORTABLE. PT BELONGINGS REMOVED AND PLACED IN THE PT LOCKER. SITTER AT BEDSIDE.
--- NOTE | 2021-09-27 14:33 | NUR ---
URINE AND COVID SPECIMEN OBTAINED AND SENT TO LAB.
--- NOTE | 2021-09-27 14:34 | NUR ---
CALLED SECURITY FOR WANDING.
[2021-09-27 15:11] LABS: BASOPHILS # (AUTO) 0.1 K/uL (0.0-0.2); BASOPHILS % (AUTO) 0.9 % (0.0-2.0); EOSINOPHILS % (AUTO) 0.8 % (0.0-6.0); HEMATOCRIT 45 % (39-51); HEMOGLOBIN 14.8 g/dL (13.5-17.5); LYMPHOCYTES # (AUTO) 1.2 K/uL (0.8-4.8); LYMPHOCYTES % (AUTO) 19.7 % (20.0-44.0); MEAN CORPUSCULAR HGB CONC 33 g/dl (31.0-36.0); MEAN CORPUSCULAR VOLUME 93 fL (80-96); MONOCYTES # (AUTO) 0.6 K/uL (0.1-1.30); MONOCYTES % (AUTO) 9.4 % (2.0-12.0); NEUTROPHILS # (AUTO) 4.3 K/uL (1.8-8.9); NEUTROPHILS % (AUTO) 69.2 % (43.0-81.0); PLATELET COUNT (AUTO) 233 K/uL (150-450); WHITE BLOOD COUNT (AUTO) 6.2 K/uL (4.3-11.0)
[2021-09-27 15:35] LABS: ALANINE AMINOTRANSFERASE 34 U/L (12-78); ALBUMIN 4.3 g/dL (3.4-5.0); ALCOHOL, BLOOD < 3 mg/dL (0-0); ALKALINE PHOSPHATASE 53 U/L (46-116); ASPARTATE AMINOTRANSFERASE 65 U/L (15-37); BILIRUBIN,DIRECT 0.1 mg/dL (0.0-0.2); BILIRUBIN,TOTAL 0.6 mg/dL (0.2-1.0); CALCIUM, SERUM 9.5 mg/dL (8.5-10.1); CARBON DIOXIDE 25 mmol/L (21-32); CHLORIDE 103 mmol/L (98-107); CREATININE 1.2 mg/dL (0.6-1.3); GLUCOSE 83 mg/dL (74-106); POTASSIUM 3.7 mmol/L (3.5-5.1); SODIUM SERUM 137 mmol/L (136-145); TOTAL PROTEIN, SERUM 8.1 g/dL (6.4-8.2); UREA NITROGEN, BLOOD 15 mg/dL (7-18)
[2021-09-27 15:36] LABS: ACETAMINOPHEN < 0 ug/ml (10-30)
[2021-09-27 15:54] LABS: BILIRUBIN,URINE SMALL (NEGATIVE); COLOR,URINE YELLOW (YELLOW); LEUKOCYTE ESTERASE ,URINE NEGATIVE (NEGATIVE); NITRITE, URINE NEGATIVE (NEGATIVE); PROTEIN,URINE NEGATIVE (NEGATIVE); UGLUCOSE NEGATIVE (NEGATIVE); UROBILINOGEN,URINE 0.2 EU/dL (0.2)
--- NOTE | 2021-09-27 16:18 | NUR ---
SS consult: SS Consult requested for homelessness. The pt. is a 26-year-old Black male patient who came in to ED due to: "SI WITH PLAN TO SHOOT HIMSELF" per EMR. Upon SS consult, the pt. is Alert & Oriented x 4 and makes piercing eye contact. The pt. appears unkempt and presents with depressed mood & affect. Pt.'s speech is clear. Pt. denies HI and states he is currently experiencing suicidal thoughts with plan to shoot himself and when asked he states he does not own a gun but is able to get one. SW offered voluntary admission to psychiatric facility for treatment and pt. is agreeable. Per pt. is experiencing both visual and auditory hallucinations. Pt. expressed frustration about ongoing hallucinations and feeling "that I do not have control of my body" per pt. SW used active listening and validated his struggle. DIMA explored pt.'s mental health Hx. Patient stated he has been diagnosed with Schizophrenia in the past and was prescribed Zyprexa. Per pt. he stopped taking the medication because "it wasn't really helping". Pt. stated he used to have a psychiatrist & therapist but has not seen either lately because "I lost their number". DIMA explored pt.'s living situation. Patient states he resides at [id number] [place] [address]; [phone] "with rom mates". DIMA explored pt.'s drug & ETOH use. Pt. states he drinks alcohol (2 beers every other day) and uses [place] daily (refused to specify). Pt. states weed and alcohol consumption are not a problem for him. Per pt. he is ambulatory and independent with all his ADL's. DIMA explored pt.'s support system. Pt. states he his sister, Lynsey Delphi [phone] is his support system. Plan: DIMA [facility] [[address] [place], [place] [id number] FAX:[phone]] for inpatient psychiatric treatment. Pt. was provided with mental health, addiction resources and pt. refused them. Counseling--Outpatient [address] [place], [place] [id number] (Specializes in in-depth psychotherapy for emotional distress: anxiety, depression, interpersonal conflicts, life transitions, childhood abuse) [facility] [address] [place] [address] (Assist with solving problem marital difficulties, separation & divorce, aging parents, & grief, chronic & terminal illness) [facility] [address] [place] [address] (Deal with loss & grief, anxiety, marital difficulties) Homebound/Mental Health Services [address] [facility] [address] [place] [address] (Provide in-home mental services to people who are incapable of leaving their homes) Organization for Needs of the Elderly Senior Service/Resource Center [address] [place], [place] [id number] [facility] [address] [place], [place] [id number] PSYCHIATRIC OUTPATIENT SERVICES [facility] Partial Hospitalization and Intensive Outpatient Program (Managed Care and [place] Only) [address] [facility] [address]; [phone] [facility] Partial Hospitalization and Outpatient Program [address] [facility] [address] [place] [address]; [phone] [facility] [id number] [facility] [address] [place], [place] [phone] [facility] Partial Hospitalization and Outpatient Iwgdcoa[address] [place], [place] ; [phone] ;[phone] [facility] [address] [place] [address] Mental Health Services Belkys James [address] [place] [address] Services: Outpatient therapy for children, teens, young adults, adults, older adults, and families; Psychiatric services, medication support [place] Crisis and Hotline Telephone Numbers: 24-Hour service unless stated [place] Mental Health/Crisis Line........412.641.2910 Suicide Prevention Center (24 Hours).......[phone] Suicide Prevention Crisis Center.......[phone] (24 Hours) Alcoholics Anonymous (24 Hours)..........783.690.6603 National Crisis Hotlines: Alcohol and Drug Helpline - Provides referrals to local facilities where adolescents and adults can seek help. Brief intervention. [facility] Helpline National [place] for the Mentally Ill 7-537-828-XTTI National Youth Crisis Hotline [facility]. Provides free information on specific disorders, referral directory to mental health providers, national directory of local mental health associations (M-F, 9-5 EST) National [place] of Mental Health Information Line: Provide sinformation and literature on mental illness by disorder-for professionals and general public. ADDICTION RESOURCES For Drugs and Alcohol [facility] Substance Abuse Helpline(SAS)-[facility] Outpatient treatment, residential treatment, recovery support for youth and adults [facility] www.actionfamilycounseling.PriceShoppers.com [facility] Teen programs for drug/alcohol education and support Lj Becerra [place]. Program for adults, sliding scale provides support and education Padma Amimon www.Chegongfangoundation.org [place]; Outpatient/residential treatment programs; transition to sober living Cri-Help www.cri-help.org [place]; Outpatient and residential treatment programs; transition to sober living [facility] Recovery Gabriel [place]am[place]; Outpatient education and supportive programs for teens and adults [facility] www.oasiswomensrecovery.org [place]; Residential treatment and work program for females only Armen Becerra www.phoVALIANT HEALTHxhouse.org [place]: Outpatient/residential treatment program for teens and young adults [facility] www.[facility].org [place] [facility], inpatient, outpatient for adults and youth [facility], [facility]. [place]; Outpatient programs and referrals to community residential programs. Alcoholics Anonymous -sfv information and meeting and schedules www.aa-intergroup.org Gl-Cxzr-Phcojym https://al-anon.org/ [place] support groups for family of alcoholics. Marijuana Anonymous www.QotureistrMomentum Telecom.org -sfv listing of meetings Narcotics Anonymous www.na.org SOBER LIVING RESOURCES The Sober Living Network www.soberhousing.net A non-profit agency that provides resources to recovery and sober living homes throughout [place], [facility] Men's Sober Living Homes: A Work in Progress, [facility] Recovery Advocates, [facility] Women's Sober Living Homes: [facility] x [phone] [place], [place] [facility] Sober Living Homes: [facility] Counseling--Outpatient [facility] [address] [facility] [place] [address] (Specializes in in-depth psychotherapy for emotional distress: anxiety, depression, interpersonal conflicts, life transitions, childhood abuse) [facility] [address] [place] [address] (Assist with solving problem marital difficulties, separation & divorce, aging parents, & grief, chronic & terminal illness) [facility] [address] [place] [address] (Deal with loss & grief, anxiety, marital difficulties) Homebound/Mental Health Services [address] [facility], [address] [place], [place] [address] (Provide in-home mental services to people who are incapable of leaving their homes) Organization for Needs of the Elderly Senior Service/Resource Center [address] [facility] [address] [facility] [address] [place] [address] Mental Health Services Belkys James [address] [place] [address] Services: Outpatient therapy for children, teens, young adults, adults, older adults, and families; Psychiatric services, medication support Psychiatric Outpatient Services [facility] Partial Hospitalization and Intensive Outpatient Program (Managed Care and [place] Only)[address] [facility] [phone] [facility] Partial Hospitalization and Outpatient [id number] [facility] [address] [place], [place] [phone] [facility] Partial Hospitalization and Outpatient Mmsngnr3158 [place], [place] [phone] [facility], [facility] Mental Health [place] [id number] [facility]. [address] [place], [place] [phone] [facility] Partial Hospitalization and Outpatient Qzxqued40228 [place], [phone] Crisis and Hotline Telephone Numbers 24-Hour service unless stated [place] Crisis Hotlines: [employer]. Mental Health/Crisis Line........313.641.6749 Suicide Prevention Center (24 Hours).......176.616.1375 Suicide Prevention Crisis Center.......[phone] (24 Hours) Assaults Against Women Hotline.........826.682.5013 (24 Hours -- [facility]) Women and Children Crisis Correction...........[phone] (24 Hours) Child Abuse Hotline............375.925.5637 [facility] (24 Hours)..........[phone] Alcoholics Anonymous (24 Hours)..........[phone] Cocaine Anonymous (24 Hours)............209.238.2991 Narcotics Anonymous (24 Hours)..........[phone] Marg[address] [facility] [address], [place] [address]
--- NOTE | 2021-09-27 16:40 | NUR ---
DIMA faxed clinicals to [facility] [[address] [place] [address] FAX:[phone]] for voluntary psychiatric treatment.
[2021-09-27 17:02] LABS: RBC,URINE 0-2 /HPF (0-2)
[2021-09-27 17:03] LABS: BACTERIA,URINE Rare /HPF (None Seen); SQUAMOUS EPITHELIAL CELL,UR Rare /HPF (None Seen)
--- NOTE | 2021-09-27 19:35 | NUR ---
PT WANTED TO GO OUT TO SMOKE A CIGARETTE. PATIENT WAS NOT ALLOWED TO GO SMOKE BECAUSE HE CANT GO OUT WITH OUT ANY BUSINESS CONTROLLER. PT GOT AGITATED STARTED TO YELL AND BEING BELIGERENT. PT THEN JUST WANTED TO BE DISCHARGE AND VERBALIZED THAT HE IS NO LONGER SUICIDAL. NANCY SOUZA WAS CALLED AND PATIENT HAD TO BE BROUGHT DOWN BECAUSE PT WAS TRYING TO HIT THE STAFF. PT WAS THEN DISCHARGE IN STABLE CONDITION.
[2021-09-28 00:12] VITALS: BP 126/75
== END 2021-09-27 19:40 | disposition home or self-care (01) ==
LOC: ER 14:18
DX: F14.10 Cocaine abuse, uncomplicated (principal); R45.851 Suicidal ideations; F17.200 Nicotine dependence, unspecified, uncomplicated; F20.9 Schizophrenia, unspecified; G89.29 Other chronic pain; M54.9 Dorsalgia, unspecified; Z20.822 Contact with and (suspected) exposure to COVID-19; Z59.01 Sheltered homelessness
CPT/HCPCS: 36415; 80048; 80076; 80143; 80307; 80320; 81001; 85025; 87426; 99283; C9803; G0480